=== PATIENT | female | born 1955 | race Caucasian/White ===

== ENCOUNTER → 2021-04-09 | Outpatient (CLI) | payer BC ==
--- NOTE | 2021-04-09 08:03 | US ---
EXAMINATION TYPE: US abdomen limited DATE OF EXAM: 04/09/2021 COMPARISON: NONE CLINICAL HISTORY: R19.00 ABDOMINAL MASS. Patient states she has lost weight and now she sees a lump in her RLQ. Scanning was performed directly over palp as pointed out by patient. The LLQ was scanned for comparis on purposes. There is a soft tissue density that measures 4.4 x 2.0 x 5.1 cm, that appears as a lipoma. IMPRESSION: 4.4 x 5.1 x 2.0 cm mass isoechoic in the right lower quadrant of the abdomen most likely represents a lipoma but clinical correlation is necessary as other etiologies could appear identical.
== END | disposition home or self-care (01) ==
LOC: RADUSWWP 07:25
PROVIDERS: ATTEND Family Medicine
DX: R19.03 Right lower quadrant abdominal swelling, mass and lump (principal)
CPT/HCPCS: 76705

== ENCOUNTER 2022-06-14 12:09 | Emergency (ER) | payer BC, MEDICARE ==
--- NOTE | 2022-06-14 12:45 | ED ---
Abdominal Pain HPI - General Chief Complaint: Abdominal Pain Stated Complaint: nausea Time Seen by Provider: 06/14/22 12:22 Source: patient, RN notes reviewed Mode of arrival: ambulatory Limitations: no limitations - History of Present Illness Initial Comments: 66-year-old female with a benign past medical history who is a nonsmoker no history of gallbladder disease or peptic ulcer disease who states her past couple weeks she's had intermittent episodes of nausea and some shakes some crampy abdominal discomfort in the mid abdomen. She states is usually does happen after eating. No shortness breath no chest pain palpitations she also does state that she started having some diarrhea this morning. Currently she is asymptomatic however no abdominal pain no heartburn feeling no cramps she had no dysuria no hematuria no prior history of kidney stones. She does states she's had weight loss recently she's been using her eliptical machine up to 30 minutes a day he has quit eating sugar. No other complaints or modifying factors MD Complaint: abdominal pain, other - Related Data Home Medications Medication Instructions Recorded Confirmed Felodipine [Felodipine ER] 10 mg PO DAILY 03/03/14 06/14/22 Potassium Chloride [Klor-Con 20] 20 meq PO SUTUTHSA 03/03/14 06/14/22 Pravastatin Sodium [Pravachol] 80 mg PO HS 03/03/14 06/14/22 hydroCHLOROthiazide [Hydrodiuril] 50 mg PO DAILY 03/03/14 06/14/22 Potassium Chloride [Klor-Con M20] 40 meq PO MOWEFR 06/14/22 06/14/22 Allergies Allergy/AdvReac Type Severity Reaction Status Date / Time No Known Allergies Allergy Verified 06/14/22 19:23 Review of Systems ROS Statement: Those systems with pertinent positive or pertinent negative responses have been documented in the HPI. ROS Other: All systems not noted in ROS Statement are negative. Past Medical History Past Medical History: Hyperlipidemia, Hypertension History of Any Multi-Drug Resistant Organisms: None Reported Past Surgical History: Tonsillectomy Past Anesthesia/Blood Transfusion Reactions: No Reported Reaction Past Alcohol Use History: None Reported Past Drug Use History: None Reported General Exam - General Exam Comments Initial Comments: This is a well-developed well-nourished awake alert oriented 4 female Limitations: no limitations General appearance: alert, in no apparent distress Head exam: Present: atraumatic, normocephalic, normal inspection Eye exam: Present: normal appearance, PERRL, EOMI. Absent: scleral icterus, conjunctival injection, periorbital swelling ENT exam: Present: normal exam, mucous membranes moist Neck exam: Present: normal inspection, full ROM. Absent: tenderness, meningismus, lymphadenopathy Respiratory exam: Present: normal lung sounds bilaterally. Absent: respiratory distress, wheezes, rales, rhonchi, stridor Cardiovascular Exam: Present: normal rhythm, tachycardia, normal heart sounds. Absent: systolic murmur, diastolic murmur, rubs, gallop, clicks GI/Abdominal exam: Present: soft, distended, normal bowel sounds, other (Evidence of ascites on exam). Absent: tenderness, guarding, rebound, rigid, bruit, pulsatile mass Extremities exam: Present: normal inspection, full ROM, normal capillary refill. Absent: tenderness, pedal edema, joint swelling, calf tenderness Back exam: Present: normal inspection Neurological exam: Present: alert, oriented X3, CN II-XII intact Psychiatric exam: Present: normal affect, normal mood Skin exam: Present: warm, dry, intact, normal color. Absent: rash Course Vital Signs 06/14/22 06/14/22 06/14/22 12:19 12:52 15:33 Temperature 98.1 F Pulse Rate 116 H 100 88 Respiratory 16 20 16 Rate Blood Pressure 133/81 142/83 153/90 O2 Sat by Pulse 97 98 99 Oximetry - Reevaluation(s) Reevaluation #1: 06/14/22 19:[address] Boggs as well as with Dr. Gant did recommend transferred to a tertiary care center due to the need for [facility] oncology. Discussed this with the patient family [facility] was contacted and accepted the patient in transfer I did discuss the case with Dr. San in the emergency department. Patient will be an ER to ER answer. Medical Decision Making - Medical Decision Making Patient did require admission for the above. Tertiary care center was deemed to be the most appropriate. Patient will be transferred to [facility]. He did take a period of time to get the workup completed as well as a transfer accomplished. - Lab Data Result diagrams: 06/14/22 12:43 06/14/22 12:43 Lab Results 06/14/22 06/14/22 06/14/22 Range/Units 12:43 12:43 12:43 WBC 13.3 H (3.8-10.6) k/uL RBC 4.29 (3.80-5.40) m/uL Hgb 11.3 L (11.4-16.0) gm/dL Hct 35.1 (34.0-46.0) % MCV 82.0 (80.0-100.0) fL MCH 26.4 (25.0-35.0) pg MCHC 32.2 (31.0-37.0) g/dL RDW 13.6 (11.5-15.5) % Plt Count 517 H (150-450) k/uL MPV 7.4 Neutrophils % 85 % Lymphocytes % 6 % Monocytes % 5 % Eosinophils % 3 % Basophils % 0 % Neutrophils # 11.2 H (1.3-7.7) k/uL Lymphocytes # 0.9 L (1.0-4.8) k/uL Monocytes # 0.6 (0-1.0) k/uL Eosinophils # 0.4 (0-0.7) k/uL Basophils # 0.0 (0-0.2) k/uL D-Dimer (<0.60) mg/L FEU Sodium 137 (137-145) mmol/L Potassium 3.5 (3.5-5.1) mmol/L Chloride 100 (98-107) mmol/L Carbon Dioxide 26 (22-30) mmol/L Anion Gap 11 mmol/L BUN 21 H (7-17) mg/dL Creatinine 1.09 H (0.52-1.04) mg/dL Est GFR (CKD-EPI)AfAm 62 (>60 ml/min/1.73 sqM) Est GFR (CKD-EPI)NonAf 54 (>60 ml/min/1.73 sqM) Glucose 108 H (74-99) mg/dL Plasma Lactic Acid Abebe (0.7-2.0) mmol/L Calcium 9.7 (8.4-10.2) mg/dL Magnesium 1.6 (1.6-2.3) mg/dL Total Bilirubin 0.5 (0.2-1.3) mg/dL AST 28 (14-36) U/L ALT 13 (4-34) U/L Alkaline Phosphatase 81 (38-126) U/L Creatine Kinase 80 (30-135) U/L Troponin I (0.000-0.034) ng/mL Total Protein 6.5 (6.3-8.2) g/dL Albumin 3.7 (3.5-5.0) g/dL Amylase 54 (30-110) U/L Lipase 252 (23-300) U/L Urine Color Yellow Urine Appearance Clear (Clear) Urine pH 8.0 (5.0-8.0) Ur Specific [place] 1.019 (1.001-1.035) Urine Protein 1+ H (Negative) Urine Glucose (UA) Negative (Negative) Urine Ketones Negative (Negative) Urine Blood Negative (Negative) Urine Nitrite Negative (Negative) Urine Bilirubin Negative (Negative) Urine Urobilinogen <2.0 (<2.0) mg/dL Ur Leukocyte Esterase Large H (Negative) Urine RBC 2 (0-5) /hpf Urine WBC 21 H (0-5) /hpf Ur Squamous Epith Cells 6 H (0-4) /hpf Urine Bacteria Rare H (None) /hpf Hyaline Casts 3 H (0-2) /lpf Urine Mucus Occasional H (None) /hpf Coronavirus (PCR) (Not Detectd) 06/14/22 06/14/22 06/14/22 Range/Units 12:43 12:43 12:43 WBC (3.8-10.6) k/uL RBC (3.80-5.40) m/uL Hgb (11.4-16.0) gm/dL Hct (34.0-46.0) % MCV (80.0-100.0) fL MCH (25.0-35.0) pg MCHC (31.0-37.0) g/dL RDW (11.5-15.5) % Plt Count (150-450) k/uL MPV Neutrophils % % Lymphocytes % % Monocytes % % Eosinophils % % Basophils % % Neutrophils # (1.3-7.7) k/uL Lymphocytes # (1.0-4.8) k/uL Monocytes # (0-1.0) k/uL Eosinophils # (0-0.7) k/uL Basophils # (0-0.2) k/uL D-Dimer (<0.60) mg/L FEU Sodium (137-145) mmol/L Potassium (3.5-5.1) mmol/L Chloride (98-107) mmol/L Carbon Dioxide (22-30) mmol/L Anion Gap mmol/L BUN (7-17) mg/dL Creatinine (0.52-1.04) mg/dL Est GFR (CKD-EPI)AfAm (>60 ml/min/1.73 sqM) Est GFR (CKD-EPI)NonAf (>60 ml/min/1.73 sqM) Glucose (74-99) mg/dL Plasma Lactic Acid Abebe 1.0 (0.7-2.0) mmol/L Calcium (8.4-10.2) mg/dL Magnesium (1.6-2.3) mg/dL Total Bilirubin (0.2-1.3) mg/dL AST (14-36) U/L ALT (4-34) U/L Alkaline Phosphatase (38-126) U/L Creatine Kinase (30-135) U/L Troponin I <0.012 (0.000-0.034) ng/mL Total Protein (6.3-8.2) g/dL Albumin (3.5-5.0) g/dL Amylase (30-110) U/L Lipase (23-300) U/L Urine Color Urine Appearance (Clear) Urine pH (5.0-8.0) Ur Specific [place] (1.001-1.035) Urine Protein (Negative) Urine Glucose (UA) (Negative) Urine Ketones (Negative) Urine Blood (Negative) Urine Nitrite (Negative) Urine Bilirubin (Negative) Urine Urobilinogen (<2.0) mg/dL Ur Leukocyte Esterase (Negative) Urine RBC (0-5) /hpf Urine WBC (0-5) /hpf Ur Squamous Epith Cells (0-4) /hpf Urine Bacteria (None) /hpf Hyaline Casts (0-2) /lpf Urine Mucus (None) /hpf Coronavirus (PCR) Not Detected (Not Detectd) 06/14/22 Range/Units 12:43 WBC (3.8-10.6) k/uL RBC (3.80-5.40) m/uL Hgb (11.4-16.0) gm/dL Hct (34.0-46.0) % MCV (80.0-100.0) fL MCH (25.0-35.0) pg MCHC (31.0-37.0) g/dL RDW (11.5-15.5) % Plt Count (150-450) k/uL MPV Neutrophils % % Lymphocytes % % Monocytes % % Eosinophils % % Basophils % % Neutrophils # (1.3-7.7) k/uL Lymphocytes # (1.0-4.8) k/uL Monocytes # (0-1.0) k/uL Eosinophils # (0-0.7) k/uL Basophils # (0-0.2) k/uL D-Dimer 3.95 H (<0.60) mg/L FEU Sodium (137-145) mmol/L Potassium (3.5-5.1) mmol/L Chloride (98-107) mmol/L Carbon Dioxide (22-30) mmol/L Anion Gap mmol/L BUN (7-17) mg/dL Creatinine (0.52-1.04) mg/dL Est GFR (CKD-EPI)AfAm (>60 ml/min/1.73 sqM) Est GFR (CKD-EPI)NonAf (>60 ml/min/1.73 sqM) Glucose (74-99) mg/dL Plasma Lactic Acid Abebe (0.7-2.0) mmol/L Calcium (8.4-10.2) mg/dL Magnesium (1.6-2.3) mg/dL Total Bilirubin (0.2-1.3) mg/dL AST (14-36) U/L ALT (4-34) U/L Alkaline Phosphatase (38-126) U/L Creatine Kinase (30-135) U/L Troponin I (0.000-0.034) ng/mL Total Protein (6.3-8.2) g/dL Albumin (3.5-5.0) g/dL Amylase (30-110) U/L Lipase (23-300) U/L Urine Color Urine Appearance (Clear) Urine pH (5.0-8.0) Ur Specific [place] (1.001-1.035) Urine Protein (Negative) Urine Glucose (UA) (Negative) Urine Ketones (Negative) Urine Blood (Negative) Urine Nitrite (Negative) Urine Bilirubin (Negative) Urine Urobilinogen (<2.0) mg/dL Ur Leukocyte Esterase (Negative) Urine RBC (0-5) /hpf Urine WBC (0-5) /hpf Ur Squamous Epith Cells (0-4) /hpf Urine Bacteria (None) /hpf Hyaline Casts (0-2) /lpf Urine Mucus (None) /hpf Coronavirus (PCR) (Not Detectd) - EKG Data -: EKG Interpreted by Ar EKG shows normal: sinus rhythm (Sinus tachycardia rate 101 SC interval 125 QRS duration 87 QT/QTC 346/404 possible left atrial enlargement nonspecific ST con figuration) - Radiology Data Radiology results: report reviewed (Imaging was reviewed as well as report evidence of ascites evidence of right pleural effusion 14 cm complex mass seen in the pelvis please see complete report), image reviewed Disposition Clinical Impression: Pelvic mass, Ascites, Pleural effusion, right, Renal insufficiency syndrome, Hydronephrosis, Weight loss Disposition: OTHER INSTITUTION NOT DEFINED Condition: Stable Referrals: Janee Ott MD [Primary Care Provider] - 1-2 days Decision Date: 06/14/22 Decision Time: 19:15 - Out of Hospital Transfer - Req. Specs Out of Hospital Transfer - Requested Specifics: Other Emergency Center
[2022-06-14 13:04] LABS: Basophils % (A) 0 %; Eosinophils # (A) 0.4 k/uL (0-0.7); Eosinophils % (A) 3 %; HCT 35.1 % (34.0-46.0); HGB 11.3 gm/dL (11.4-16.0); Lymphocytes # (A) 0.9 k/uL (1.0-4.8); Lymphocytes % (A) 6 %; MCH 26.4 pg (25.0-35.0); MCHC 32.2 g/dL (31.0-37.0); Mean Platelet Volume 7.4; Monocytes # (A) 0.6 k/uL (0-1.0); Monocytes % (A) 5 %; Neutrophils # (A) 11.2 k/uL (1.3-7.7); Neutrophils % (A) 85 %; Platelet Count 517 k/uL (150-450); RBC 4.29 m/uL (3.80-5.40); RDW 13.6 % (11.5-15.5); WBC 13.3 k/uL (3.8-10.6)
[2022-06-14 13:10] LABS: Appearance,Urine Clear (Clear); Bacteria,Urine Rare /hpf; Bilirubin,Urine Negative (Negative); Blood,Urine Negative (Negative); Color,Urine Yellow; Glucose,Urine (UA) Negative (Negative); Hyaline Casts,Urine 3 /lpf (0-2); Ketones,Urine Negative (Negative); Leukocyte Esterase,Urine Large (Negative); Mucus,Urine Occasional /hpf; Nitrite,Urine Negative (Negative); Protein,Urine 1+ (Negative); RBC,Urine 2 /hpf (0-5); Specific Gravity,Urine 1.019 (1.001-1.035); Squamous Epithelial Cell,Urine 6 /hpf (0-4); Urobilinogen,Urine <2.0 mg/dL (<2.0); WBC,Urine 21 /hpf (0-5)
[2022-06-14 13:27] LABS: Albumin 3.7 g/dL (3.5-5.0); Calcium 9.7 mg/dL (8.4-10.2); Magnesium 1.6 mg/dL (1.6-2.3); Potassium 3.5 mmol/L (3.5-5.1); Total Bilirubin 0.5 mg/dL (0.2-1.3); Total Protein 6.5 g/dL (6.3-8.2)
--- NOTE | 2022-06-14 13:40 | XR ---
EXAMINATION TYPE: XR KUB DATE OF EXAM: 06/14/2022 COMPARISON: NONE HISTORY: Pain TECHNIQUE: Single supine KUB image of the abdomen is obtained FINDINGS: Small bowel demonstrates no evidence for dilatation or air fluid levels. Gas and fecal material is seen in non-distended colon. No convincing evidence for pneumoperitoneum. No unusual calcifications. The lung bases are clear. The osseous structures are intact. IMPRESSION: 1. Overall nonobstructive bowel gas pattern.
[2022-06-14] MEDS ORDERED: SODIUM CHLORIDE 0.9% 1,000 ML IV STA (14:28)
--- NOTE | 2022-06-14 14:58 | CT ---
EXAMINATION TYPE: CT angio chest DATE OF EXAM: 06/14/2022 COMPARISON: HISTORY: Elevated d-dimer, heartburn sensation, pressure CT DLP: 276.9 mGycm Automated exposure control for dose reduction was used. CONTRAST: Performed with IV Contrast, patient injected with 80 mL of Isovue 370. There are 3-D post processed images. There is right pleural effusion. There is large amount of abdominal ascites fluid. There is patchy in terstitial infiltrate in both lungs. No mediastinal adenopathy. There are no hilar masses. There is n ormal contrast opacification of the pulmonary arteries. No filling defect. Heart size is fairly rafaela l. No pericardial effusion. The thoracic spine is intact. No compression fracture. Sternum is intact. The left kidney appears to show hydronephrosis IMPRESSION: No evidence of pulmonary embolism. Interstitial pulmonary infiltrates. Right pleural effusion and large amount of abdominal ascites fluid. Possible left-sided hydronephrosi s
[2022-06-14 15:34] VITALS: RESP 16
--- NOTE | 2022-06-14 16:42 | CT ---
EXAMINATION TYPE: CT abdomen pelvis wo con DATE OF EXAM: 06/14/2022 COMPARISON: None HISTORY: Flank pain kidney stone suspected CT DLP: 778.9 mGycm Automated exposure control for dose reduction was used. Images obtained from the diaphragm to the floor the pelvis with no IV contrast. There is right pleural effusion. Heart size is fairly normal. No pericardial effusion. Liver and sple en are intact. There is moderate abdominal ascites. There is no evidence of pancreatic mass. There ar e small calcified gallstone. There is contrast in the kidneys from recent CT scan. There is left-side d hydronephrosis and hydroureter. Bladder distends smoothly without contrast. The distal left ureter is not well identified. There is a large complex solid and cystic pelvic mass with septations. Mass measures 14 cm. Uterus is difficult to identify. There is no free air. No bowel obstruction. The lumbar vertebrae have normal alignment. No compression fracture. Disc spaces are fairly normal. T he bony pelvis is intact. The hip joints are intact. IMPRESSION: Large complex pelvic mass could be a tumor of uterus or ovary. Abdominal ascites. Left-sided hydronep hrosis and hydroureter with a delayed left sided pyelogram. Distal left ureter likely obstructed due to the large pelvic mass. No calculus seen. Mild right pleural effusion.
[2022-06-14 20:02] VITALS: TEMP 98.6
[2022-06-14 22:38] VITALS: BP 145/85; PULSE 68
== END 2022-06-14 22:36 | disposition other institution (70) ==
LOC: EC 12:09
DX: J90 Pleural effusion, not elsewhere classified (principal); R18.8 Other ascites; R63.4 Abnormal weight loss; N28.9 Disorder of kidney and ureter, unspecified; I10 Essential (primary) hypertension; E78.5 Hyperlipidemia, unspecified; Z20.822 Contact with and (suspected) exposure to COVID-19; Z79.899 Other long term (current) drug therapy
CPT/HCPCS: 36415; 93005; 85379; 80053; 82150; 82550; 83605; 83690; 83735; 84484; 85025; 81001; 87086; 87635; 74018; 71275; 74176; 96360; 99285; Q9967

== ENCOUNTER 2022-08-05 16:43 | Inpatient (IN) | payer MEDICARE ==
--- NOTE | 2022-08-05 17:29 | ED ---
General Adult HPI - General Chief complaint: Shortness of Breath Stated complaint: Fluid Over Lung Time Seen by Provider: 08/05/22 16:50 Source: patient, EMS, RN notes reviewed, old records reviewed Mode of arrival: EMS Limitations: no limitations - History of Present Illness Initial comments: This 66-year-old female who presents to the emergency department with past medical history significant for ovarian cancer. Patient states in the past she's had to have a paracentesis and thoracentesis to get fluid off of her. Patient comes in today because last night she started having difficulty breathing and worsening today. Patient believes is because she has to much fluid in her lungs and wished fluid in her belly. Patient denies any fever chills or cough per patient denies any chest pain or palpitations. Patient denies lightheadedness or dizziness. Patient states there is some abdominal pain but not bad. Patient denies nausea vomiting diarrhea. Patient denies any recent injury or trauma. Patient states the swelling in her legs is chronic but believes they are bigger than normal - Related Data Home Medications Medication Instructions Recorded Confirmed Felodipine [Felodipine ER] 10 mg PO DAILY 03/03/14 08/05/22 Potassium Chloride [Klor-Con 20] 20 meq PO SUTHFRSA 03/03/14 08/05/22 Pravastatin Sodium [Pravachol] 80 mg PO HS 03/03/14 08/05/22 Potassium Chloride [Klor-Con M20] 40 meq PO MOTUWE 06/14/22 08/05/22 Acetaminophen [Tylenol] 650 mg PO Q8H PRN 08/05/22 08/05/22 Cholestyramine (with Sugar) 4 gm PO Q4H 08/05/22 08/05/22 [Cholestyramine Packet] Diphenoxylate HCl/Atropine 1 tab PO QID PRN 08/05/22 08/05/22 [Lomotil 2.5-0.025 mg Tablet] Docusate Sodium [Dok] 100 mg PO BID@0800,1700 08/05/22 08/05/22 Famotidine [Pepcid] 40 mg PO DAILY 08/05/22 08/05/22 Furosemide [Lasix] 20 mg PO DAILY 08/05/22 08/05/22 HYDROcodone/APAP 5-325MG [[place] 1 tab PO Q6H PRN 08/05/22 08/05/22 5-325] Ipratropium-Albuterol Nebulize 3 ml INHALATION RT-Q6H PRN 08/05/22 08/05/22 [Duoneb 0.5 mg-3 mg/3 ml Soln] Loperamide HCl [Imodium A-D] 2 mg PO Q6H 08/05/22 08/05/22 Mag Hydrox/Al Hydrox/Simeth 30 ml PO Q6H PRN 08/05/22 08/05/22 [Maalox] Magnesium Hydroxide [Milk of 7,200 mg PO Q48H PRN 08/05/22 08/05/22 Magnesia Concentrate] Metoclopramide HCl [Reglan] 5 mg PO BID@0800,1700 08/05/22 08/05/22 Metoprolol Succinate (ER) [Toprol 25 mg PO DAILY 08/05/22 08/05/22 Xl] Na Phos,M-B/Na Phos,Di-Ba [Fleet 133 ml RECTAL DAILY PRN 08/05/22 08/05/22 Adult] Naproxen [Naprosyn] 500 mg PO BID@0800,1700 08/05/22 08/05/22 Pantoprazole Sodium [Protonix] 40 mg PO BID@0800,1700 08/05/22 08/05/22 Prochlorperazine [Compazine] 10 mg PO TID PRN 08/05/22 08/05/22 SILVER sulfADIAZINE Cream 1 applic TOPICAL BID 08/05/22 08/05/22 [Silvadene 1% Cream] Spironolactone [Aldactone] 25 mg PO DAILY 08/05/22 08/05/22 Tolterodine Tartrate [Tolterodine 4 mg PO DAILY 08/05/22 08/05/22 Tartrate ER] bisacodyL [Dulcolax] 10 mg RECTAL DAILY PRN 08/05/22 08/05/22 ondansetron HCL [Zofran] 8 mg PO Q8HR PRN 08/05/22 08/05/22 Allergies Allergy/AdvReac Type Severity Reaction Status Date / Time No Known Allergies Allergy Verified 08/05/22 20:05 Review of Systems ROS Statement: Those systems with pertinent positive or pertinent negative responses have been documented in the HPI. ROS Other: All systems not noted in ROS Statement are negative. Past Medical History Past Medical History: Hyperlipidemia, Hypertension History of Any Multi-Drug Resistant Organisms: None Reported Past Surgical History: Tonsillectomy Past Anesthesia/Blood Transfusion Reactions: No Reported Reaction Past Psychological History: No Psychological Hx Reported Past Alcohol Use History: None Reported Past Drug Use History: None Reported General Exam - General Exam Comments Initial Comments: GENERAL: Patient is well-developed and well-nourished. Patient is nontoxic and well- hydrated and is in mild distress. ENT: Neck is soft and supple. No significant lymphadenopathy is noted. Oropharynx is clear. Moist mucous membranes. Neck has full range of motion without eliciting any pain. EYES: The sclera were anicteric and conjunctiva were pink and moist. Extraocular movements were intact and pupils were equal round and reactive to light. Eyelids were unremarkable. PULMONARY: Unlabored respirations. Good breath sounds bilaterally. No audible rales rhonchi or wheezing was noted. CARDIOVASCULAR: There is a regular rate and rhythm without any murmurs gallops or rubs. ABDOMEN: Soft and nontender with normal bowel sounds. SKIN: Skin is clear with no lesions or rashes and otherwise unremarkable. NEUROLOGIC: Patient is alert and oriented x3. Cranial nerves II through XII are grossly int act. Motor and sensory are also intact. Normal speech, volume and content. Symmetrical smile. MUSCULOSKELETAL: Normal extremities with adequate strength and full range of motion. 2+ edema bilaterally LYMPHATICS: No significant lymphadenopathy is noted PSYCHIATRIC: Normal psychiatric evaluation. Limitations: no limitations Course Vital Signs 08/05/22 08/05/22 08/05/22 16:55 17:00 17:30 Temperature 97.6 F Pulse Rate 98 96 97 Respiratory 22 24 24 Rate Blood Pressure 103/68 88/63 93/63 O2 Sat by Pulse 95 95 95 Oximetry 08/05/22 08/05/22 08/05/22 18:30 19:22 20:31 Temperature 98.2 F Pulse Rate 98 97 101 H Respiratory 24 24 22 Rate Blood Pressure 87/60 85/58 97/51 O2 Sat by Pulse 96 95 96 Oximetry Medical Decision Making - Medical Decision Making I interpreted EKG. EKG shows sinus rhythm at 98 bpm MT interval 124 QRS is 80 QT intervals 370 QTC is 373. Patient's EKG shows no significant ST segment elevation or depression V6 is difficult to recent secondary to a lot of noise. I interpreted the chest x-ray. Chest x-ray shows pleural effusion on the right. I did a chest x-ray of the chest. I see no pulmonary embolism. Patient had hyperkalemia so the patient was given one amp of bicarb 1 amp of D50 1 amp of calcium chloride 10 units of insulin and 30 of Kayexalate - Lab Data Result diagrams: 08/05/22 17:25 08/05/22 18:42 Lab Results 08/05/22 08/05/22 08/05/22 Range/Units 17:25 17:25 17:25 WBC 14.8 H (3.8-10.6) k/uL RBC 3.63 L (3.80-5.40) m/uL Hgb 9.3 L D (11.4-16.0) gm/dL Hct 29.3 L (34.0-46.0) % MCV 80.7 (80.0-100.0) fL MCH 25.5 (25.0-35.0) pg MCHC 31.6 (31.0-37.0) g/dL RDW 20.4 H (11.5-15.5) % Plt Count 557 H (150-450) k/uL MPV 8.9 Neutrophils % (Manual) 60 % Band Neuts % (Manual) 30 % Lymphocytes % (Manual) 7 % Monocytes % (Manual) 3 % Neutrophils # (Manual) 13.30 H (1.3-7.7) k/uL Lymphocytes # (Manual) 1.04 (1.0-4.8) k/uL Monocytes # (Manual) 0.44 (0-1.0) k/uL Nucleated RBCs 0 (0-0) /100 WBC Manual Slide Review Performed Toxic Vacuolation Present Hypochromasia Slight Anisocytosis Moderate Microcytosis Slight PT 15.0 H (9.0-12.0) sec INR 1.5 H (<1.2) APTT 29.4 (22.0-30.0) sec D-Dimer (<0.60) mg/L FEU Sodium 133 L (137-145) mmol/L Potassium 6.1 H* (3.5-5.1) mmol/L Chloride 108 H (98-107) mmol/L Carbon Dioxide 18 L (22-30) mmol/L Anion Gap 7 mmol/L BUN 36 H (7-17) mg/dL Creatinine 1.07 H (0.52-1.04) mg/dL Est GFR (CKD-EPI)AfAm 63 (>60 ml/min/1.73 sqM) Est GFR (CKD-EPI)NonAf 55 (>60 ml/min/1.73 sqM) Glucose 83 (74-99) mg/dL Plasma Lactic Acid [place] (0.7-2.0) mmol/L Calcium 7.6 L (8.4-10.2) mg/dL Magnesium 1.8 (1.6-2.3) mg/dL Total Bilirubin 0.5 (0.2-1.3) mg/dL AST 26 (14-36) U/L ALT 19 (4-34) U/L Alkaline Phosphatase 109 (38-126) U/L Troponin I (0.000-0.034) ng/mL NT-Pro-B Natriuret Pep pg/mL Total Protein 5.1 L (6.3-8.2) g/dL Albumin 2.1 L (3.5-5.0) g/dL Blood Type Blood Type Confirm Blood Type Recheck Bld Type Recheck Status Antibody Screen Spec Expiration Date 08/05/22 08/05/22 08/05/22 Range/Units 17:25 17:25 17:25 WBC (3.8-10.6) k/uL RBC (3.80-5.40) m/uL Hgb (11.4-16.0) gm/dL Hct (34.0-46.0) % MCV (80.0-100.0) fL MCH (25.0-35.0) pg MCHC (31.0-37.0) g/dL RDW (11.5-15.5) % Plt Count (150-450) k/uL MPV Neutrophils % (Manual) % Band Neuts % (Manual) % Lymphocytes % (Manual) % Monocytes % (Manual) % Neutrophils # (Manual) (1.3-7.7) k/uL Lymphocytes # (Manual) (1.0-4.8) k/uL Monocytes # (Manual) (0-1.0) k/uL Nucleated RBCs (0-0) /100 WBC Manual Slide Review Toxic Vacuolation Hypochromasia Anisocytosis Microcytosis PT (9.0-12.0) sec INR (<1.2) APTT (22.0-30.0) sec D-Dimer (<0.60) mg/L FEU Sodium (137-145) mmol/L Potassium (3.5-5.1) mmol/L Chloride (98-107) mmol/L Carbon Dioxide (22-30) mmol/L Anion Gap mmol/L BUN (7-17) mg/dL Creatinine (0.52-1.04) mg/dL Est GFR (CKD-EPI)AfAm (>60 ml/min/1.73 sqM) Est GFR (CKD-EPI)NonAf (>60 ml/min/1.73 sqM) Glucose (74-99) mg/dL Plasma Lactic Acid [place] 1.9 (0.7-2.0) mmol/L Calcium (8.4-10.2) mg/dL Magnesium (1.6-2.3) mg/dL Total Bilirubin (0.2-1.3) mg/dL AST (14-36) U/L ALT (4-34) U/L Alkaline Phosphatase (38-126) U/L Troponin I <0.012 (0.000-0.034) ng/mL NT-Pro-B Natriuret Pep 1090 pg/mL Total Protein (6.3-8.2) g/dL Albumin (3.5-5.0) g/dL Blood Type Blood Type Confirm Blood Type Recheck Bld Type Recheck Status Antibody Screen Spec Expiration Date 08/05/22 08/05/22 08/05/22 Range/Units 17:25 17:53 18:02 WBC (3.8-10.6) k/uL RBC (3.80-5.40) m/uL Hgb (11.4-16.0) gm/dL Hct (34.0-46.0) % MCV (80.0-100.0) fL MCH (25.0-35.0) pg MCHC (31.0-37.0) g/dL RDW (11.5-15.5) % Plt Count (150-450) k/uL MPV Neutrophils % (Manual) % Band Neuts % (Manual) % Lymphocytes % (Manual) % Monocytes % (Manual) % Neutrophils # (Manual) (1.3-7.7) k/uL Lymphocytes # (Manual) (1.0-4.8) k/uL Monocytes # (Manual) (0-1.0) k/uL Nucleated RBCs (0-0) /100 WBC Manual Slide Review Toxic Vacuolation Hypochromasia Anisocytosis Microcytosis PT (9.0-12.0) sec INR (<1.2) APTT (22.0-30.0) sec D-Dimer 2.67 H (<0.60) mg/L FEU Sodium (137-145) mmol/L Potassium (3.5-5.1) mmol/L Chloride (98-107) mmol/L Carbon Dioxide (22-30) mmol/L Anion Gap mmol/L BUN (7-17) mg/dL Creatinine (0.52-1.04) mg/dL Est GFR (CKD-EPI)AfAm (>60 ml/min/1.73 sqM) Est GFR (CKD-EPI)NonAf (>60 ml/min/1.73 sqM) Glucose (74-99) mg/dL Plasma Lactic Acid [place] (0.7-2.0) mmol/L Calcium (8.4-10.2) mg/dL Magnesium (1.6-2.3) mg/dL Total Bilirubin (0.2-1.3) mg/dL AST (14-36) U/L ALT (4-34) U/L Alkaline Phosphatase (38-126) U/L Troponin I (0.000-0.034) ng/mL NT-Pro-B Natriuret Pep pg/mL Total Protein (6.3-8.2) g/dL Albumin (3.5-5.0) g/dL Blood Type A Positive Blood Type Confirm A Positive Blood Type Recheck No Previous Record Bld Type Recheck Status CABO Indicated Antibody Screen NEGATIVE Spec Expiration Date 08/08/2022 - 235208/05/22 Range/Units 18:42 WBC (3.8-10.6) k/uL RBC (3.80-5.40) m/uL Hgb (11.4-16.0) gm/dL Hct (34.0-46.0) % MCV (80.0-100.0) fL MCH (25.0-35.0) pg MCHC (31.0-37.0) g/dL RDW (11.5-15.5) % Plt Count (150-450) k/uL MPV Neutrophils % (Manual) % Band Neuts % (Manual) % Lymphocytes % (Manual) % Monocytes % (Manual) % Neutrophils # (Manual) (1.3-7.7) k/uL Lymphocytes # (Manual) (1.0-4.8) k/uL Monocytes # (Manual) (0-1.0) k/uL Nucleated RBCs (0-0) /100 WBC Manual Slide Review Toxic Vacuolation Hypochromasia Anisocytosis Microcytosis PT (9.0-12.0) sec INR (<1.2) APTT (22.0-30.0) sec D-Dimer (<0.60) mg/L FEU Sodium (137-145) mmol/L Potassium 6.3 H* (3.5-5.1) mmol/L Chloride (98-107) mmol/L Carbon Dioxide (22-30) mmol/L Anion Gap mmol/L BUN (7-17) mg/dL Creatinine (0.52-1.04) mg/dL Est GFR (CKD-EPI)AfAm (>60 ml/min/1.73 sqM) Est GFR (CKD-EPI)NonAf (>60 ml/min/1.73 sqM) Glucose (74-99) mg/dL Plasma Lactic Acid [place] (0.7-2.0) mmol/L Calcium (8.4-10.2) mg/dL Magnesium (1.6-2.3) mg/dL Total Bilirubin (0.2-1.3) mg/dL AST (14-36) U/L ALT (4-34) U/L Alkaline Phosphatase (38-126) U/L Troponin I (0.000-0.034) ng/mL NT-Pro-B Natriuret Pep pg/mL Total Protein (6.3-8.2) g/dL Albumin (3.5-5.0) g/dL Blood Type Blood Type Confirm Blood Type Recheck Bld Type Recheck Status Antibody Screen Spec Expiration Date Critical Care Time Critical Care Time: Yes Total Critical Care Time: 35 Disposition Clinical Impression: Hyperkalemia, Dyspnea, Pleural effusion, Ovarian cancer Disposition: ADMITTED IP TO THIS HOSP Referrals: Favian Alonzo MD [Primary Care Provider] - 1-2 days Time of Disposition: 21:25
[2022-08-05 18:18] LABS: Albumin 2.1 g/dL (3.5-5.0); Calcium 7.6 mg/dL (8.4-10.2); Magnesium 1.8 mg/dL (1.6-2.3); Total Bilirubin 0.5 mg/dL (0.2-1.3); Total Protein 5.1 g/dL (6.3-8.2)
[2022-08-05 18:19] LABS: INR 1.5 (<1.2); Partial Thromboplastin Time 29.4 sec (22.0-30.0)
--- NOTE | 2022-08-05 18:20 | XR ---
EXAMINATION TYPE: XR chest 2V DATE OF EXAM: 08/05/2022 5:50 PM COMPARISON: Chest radiographs from 08/05/2022 CT chest and 2421 TECHNIQUE: XR chest 2V Frontal and lateral views of the chest. CLINICAL INDICATION:Female, 66 years old with history of difficulty breathing; FINDINGS: Lungs/Pleura: Blunting of the right costophrenic angle with associated atelectasis. No evidence of pn eumothorax. No left-sided pleural effusion. Pulmonary vascularity: Unremarkable. Heart/mediastinum: Cardiomediastinal silhouette is unremarkable. Musculoskeletal: Degenerative changes of the shoulder joints. IMPRESSION: Right pleural effusion with associated atelectasis.
[2022-08-05 18:24] LABS: Potassium 6.1 mmol/L (3.5-5.1)
[2022-08-05 18:52] LABS: Anisocytosis Moderate; HCT 29.3 % (34.0-46.0); Hypochromasia Slight; MCH 25.5 pg (25.0-35.0); MCHC 31.6 g/dL (31.0-37.0); MCV 80.7 fL (80.0-100.0); Mean Platelet Volume 8.9; Microcytosis Slight; Platelet Count 557 k/uL (150-450); RBC 3.63 m/uL (3.80-5.40); RDW 20.4 % (11.5-15.5); WBC 14.8 k/uL (3.8-10.6)
[2022-08-05 18:55] LABS: HGB 9.3 gm/dL (11.4-16.0)
[2022-08-05 19:04] LABS: Band Neutrophils % 30 %; Lymphocytes # (M) 1.04 k/uL (1.0-4.8); Monocytes # (M) 0.44 k/uL (0-1.0); Neutrophils % (M) 60 %; Nucleated Red Blood Cells 0 /100 WBC (0-0); Total Cells Counted 100; Toxic Vacuolation Present
[2022-08-05] MEDS ORDERED: LORazepam 2 MG/ML INJ IV STA (19:16)
[2022-08-05] MEDS ORDERED: CALCIUM CHLORIDE 100 MG/ML 10 ML SYRINGE IVP STA (19:24)
[2022-08-05] MEDS ORDERED: SODIUM BICARB 8.4% 50 ML SYR (1 MEQ/ML) IV STA (19:24)
[2022-08-05] MEDS ORDERED: INSULIN REGULAR 100 UNIT/ML VIAL (IV) IV ONE (19:24)
[2022-08-05] MEDS ORDERED: DEXTROSE 50% SYRINGE 50 ML IVP STA (19:24)
[2022-08-05] MEDS: SODIUM POLYSTYRENE SULFONATE 15 GM/60 ML BOTTLE PO STA ×2 (19:30→19:42)
[2022-08-05] MEDS ORDERED: SODIUM CHLORIDE 0.9% 1,000 ML IV ONE (21:39)
--- NOTE | 2022-08-05 21:43 | CT ---
EXAMINATION TYPE: CT chest angio for PE CT DLP: 325.9 mGycm, Automated exposure control for dose reduction was used. DATE OF EXAM: 08/05/2022 8:52 PM COMPARISON: 06/14/2022 CT chest CLINICAL INDICATION:Female, 66 years old with history of Elevated d-dimer, shortness of breath; SOB a nd elevated d-dimer TECHNIQUE/CONTRAST: CTA scan of the thorax is performed with IV Contrast, patient injected with 68 mL of Isovue 370, pulm onary embolism protocol. MIP images are created and reviewed. FINDINGS: Pulmonary Artery: There is no evidence for a filling defect within the pulmonary vasculature to sugge st acute pulmonary embolism. The pulmonary artery is of normal size. Lungs/Pleura: Right lower lobe consolidation likely representing atelectasis from moderate right pleu ral effusion. No left pleural effusion is visualized. No evidence of pneumothorax. No airspace consol idation. Airway: Large airways are patent. Heart: Heart is within normal limits for size.. Vasculature: No evidence of aortic aneurysm. Mediastinum: No gross evidence of adenopathy. Esophagus is dilated and fluid containing in the distal portion. Musculoskeletal: No acute osseous abnormalities, multilevel disc degeneration changes throughout the spine. Soft Tissues: Anasarca of the soft tissues. Lower neck: No significant findings. Upper Abdomen: Gastric lumen is distended. Diffuse low-attenuation of the liver parenchyma. Small yuri unt of ascites is seen in the abdomen and pelvis. IMPRESSION: 1. No evidence of pulmonary embolism. 2. Distended gastric lumen with suspected reflux extending into the esophagus up to near the lung ap exes. 3. Moderate right pleural effusion with associated atelectasis. 4. Anasarca of the soft tissues. 5. Hepatic steatosis 6. Trace ascites in upper abdomen which is partially visualized.
--- NOTE | 2022-08-06 07:26 | P.CNPUL ---
History of Present Illness Consult date: 08/06/22 Requesting physician: Beau Samano Reason for consult: dyspnea, pleural effusion, abnormal CXR/CT Chief complaint: Shortness of breath. History of present illness: Pulmonary consult dated 08/06/2022. 66-year-old female, very poor historian, who apparently presents to the emergency department on August 05, complaining of shortness of breath. She apparently has a history of ovarian carcinoma, and has had significant ascites, and previous paracentesis abdominis. Currently, the patient's feeling much better from the pulmonary standpoint. She states that yesterday, when she came to the ER, she was profoundly short of breath. She now has no supplemental oxygen, and also now has an NG tube in place. She's not receiving any IV fluids. She denies any difficulty breathing, coughing, wheezing, or phlegm production. She denied any nausea or vomiting or diarrhea in the emergency department yesterday. Based on her medications, she appears to have hypertension, hyperlipidemia, and chronic GI issues. Again, she is a very poor historian, and doesn't really know who has performed paracentesis in the past. White count 14.8, hemoglobin 9.3, hematocrit 29.3, and platelet count 557,000. PT 15, INR 1.5, and d-dimer is 2.67. Sodium 133, potassium 5.8, chlorides 108, CO2 18, anion gap 7, BUN 36, and creatinine 1.07. Albumin is 2.1. N-terminal proBNP is 1090. Troponin is negative. Chest x-ray shows right-sided pleural effusion with associated atelectasis. CT angiogram was negative for pulmonary embolism, but did show a moderate right-sided pleural effusion with associated atelectasis. Review of Systems REVIEW OF SYSTEMS: CONSTITUTIONAL: [Negative.] NEUROLOGIC: [ Negative.] HEENT: [ Negative.] CARDIAC: [Negative.] PULMONARY: Shortness of breath. GI: [Negative.] : [Negative.] RHEUMATOLOGIC: [ Negative.] IMMUNOLOGIC: [ Negative.] ENDOCRINE: [Negative. ] DERMATOLOGIC: [Negative.] Past Medical History Past Medical History: Hyperlipidemia, Hypertension History of Any Multi-Drug Resistant Organisms: None Reported Past Surgical History: Tonsillectomy Past Anesthesia/Blood Transfusion Reactions: No Reported Reaction Past Psychological History: No Psychological Hx Reported Smoking Status: Unknown if ever smoked Past Alcohol Use History: None Reported Past Drug Use History: None Reported Medications and Allergies Home Medications Medication Instructions Recorded Confirmed Type Felodipine [Felodipine ER] 10 mg PO DAILY 03/03/14 08/05/22 History Potassium Chloride [Klor-Con 20] 20 meq PO SUTHFRSA 03/03/14 08/05/22 History Pravastatin Sodium [Pravachol] 80 mg PO HS 03/03/14 08/05/22 History Potassium Chloride [Klor-Con M20] 40 meq PO MOTUWE 06/14/22 08/05/22 History Acetaminophen [Tylenol] 650 mg PO Q8H PRN 08/05/22 08/05/22 History Cholestyramine (with Sugar) 4 gm PO Q4H 08/05/22 08/05/22 History [Cholestyramine Packet] Diphenoxylate HCl/Atropine 1 tab PO QID PRN 08/05/22 08/05/22 History [Lomotil 2.5-0.025 mg Tablet] Docusate Sodium [Dok] 100 mg PO BID@0800,1700 08/05/22 08/05/22 History Famotidine [Pepcid] 40 mg PO DAILY 08/05/22 08/05/22 History Furosemide [Lasix] 20 mg PO DAILY 08/05/22 08/05/22 History HYDROcodone/APAP 5-325MG [[place] 1 tab PO Q6H PRN 08/05/22 08/05/22 History 5-325] Ipratropium-Albuterol Nebulize 3 ml INHALATION RT-Q6H PRN 08/05/22 08/05/22 History [Duoneb 0.5 mg-3 mg/3 ml Soln] Loperamide HCl [Imodium A-D] 2 mg PO Q6H 08/05/22 08/05/22 History Mag Hydrox/Al Hydrox/Simeth 30 ml PO Q6H PRN 08/05/22 08/05/22 History [Maalox] Magnesium Hydroxide [Milk of 7,200 mg PO Q48H PRN 08/05/22 08/05/22 History Magnesia Concentrate] Metoclopramide HCl [Reglan] 5 mg PO BID@0800,1700 08/05/22 08/05/22 History Metoprolol Succinate (ER) [Toprol 25 mg PO DAILY 08/05/22 08/05/22 History Xl] Na Phos,M-B/Na Phos,Di-Ba [Fleet 133 ml RECTAL DAILY PRN 08/05/22 08/05/22 H istory Adult] Naproxen [Naprosyn] 500 mg PO BID@0800,1700 08/05/22 08/05/22 History Pantoprazole Sodium [Protonix] 40 mg PO BID@0800,1700 08/05/22 08/05/22 History Prochlorperazine [Compazine] 10 mg PO TID PRN 08/05/22 08/05/22 History SILVER sulfADIAZINE Cream 1 applic TOPICAL BID 08/05/22 08/05/22 History [Silvadene 1% Cream] Spironolactone [Aldactone] 25 mg PO DAILY 08/05/22 08/05/22 History Tolterodine Tartrate [Tolterodine 4 mg PO DAILY 08/05/22 08/05/22 History Tartrate ER] bisacodyL [Dulcolax] 10 mg RECTAL DAILY PRN 08/05/22 08/05/22 History ondansetron HCL [Zofran] 8 mg PO Q8HR PRN 08/05/22 08/05/22 History Allergies Allergy/AdvReac Type Severity Reaction Status Date / Time No Known Allergies Allergy Verified 08/05/22 20:05 Physical Exam Osteopathic Statement: *. No significant issues noted on an osteopathic structural exam other than those noted in the History and Physical/Consult. Vitals: Vital Signs Temp Pulse Pulse Resp BP BP Pulse Ox 08/06/22 06:38 97.7 F 96 20 82/53 08/06/22 06:18 81/48 08/06/22 04:00 80/50 08/06/22 02:47 97.4 F L 83 16 83/53 96 08/05/22 23:42 82 16 92/57 96 08/05/22 22:43 85 18 94/53 95 08/05/22 20:31 101 H 22 97/51 96 08/05/22 19:22 98.2 F 97 24 85/58 95 08/05/22 18:30 98 24 87/60 96 08/05/22 17:30 97 24 93/63 95 08/05/22 17:00 96 24 88/63 95 08/05/22 16:55 97.6 F 98 22 103/68 95 Intake and Output 08/05/22 08/06/22 08/06/22 22:59 06:59 14:59 Intake Total 0 Output Total 1800 Balance -1800 0 Intake: Oral 0 Output: Gastric Drainage 1800 Other: Voiding Method External Catheter Weight 93.894 kg 93.894 kg No acute distress, oriented 3. Currently on room air. NG tube is noted. No obvious respiratory difficulty. HEENT examination is grossly unremarkable. Neck supple. Full range of motion. No adenopathy thyromegaly or neck vein distention. Cardiovascular examination reveals regular rhythm rate. S1-S2 normal. No S3 or S4. No discernible murmur noted. Heart rate 96 bpm. Lungs reveal diminished basilar right-sided breast sounds. Dullness on percussion. Left lung is relatively clear. No wheezes or crackles. Room air saturation 96%. Abdomen is distended, with a fluid wave. No tenderness on palpation. Extremities are intact. No cyanosis or clubbing. Significant lower extremity edema is noted. Skin is without rash or lesion. Neurologic examination is brief but nonfocal. Results - Laboratory Findings CBC and BMP: 08/05/22 17:25 08/06/22 05:24 PT/INR, D-dimer PT 15.0 sec (9.0-12.0) H 08/05/22 17:25 INR 1.5 (<1.2) H 08/05/22 17:25 D-Dimer 2.67 mg/L FEU (<0.60) H 08/05/22 17:25 Abnormal lab findings: Abnormal Labs 08/05/22 08/05/22 08/05/22 17:25 17:25 17:25 WBC 14.8 H RBC 3.63 L Hgb 9.3 L D Hct 29.3 L RDW 20.4 H Plt Count 557 H Neutrophils # (Manual) 13.30 H PT 15.0 H INR 1.5 H D-Dimer Sodium 133 L Potassium 6.1 H* Chloride 108 H Carbon Dioxide 18 L BUN 36 H Creatinine 1.07 H Calcium 7.6 L Total Protein 5.1 L Albumin 2.1 L 08/05/22 08/05/22 08/06/22 17:25 18:42 05:24 WBC RBC Hgb Hct RDW Plt Count Neutrophils # (Manual) PT INR D-Dimer 2.67 H Sodium Potassium 6.3 H* 5.8 H Chloride Carbon Dioxide BUN Creatinine Calcium Total Protein Albumin - Diagnostic Findings Chest x-ray: image reviewed CT scan - chest: image reviewed Assessment and Plan Assessment: Shortness of breath, likely secondary to right-sided pleural effusion, and abdominal ascites, secondary to her ovarian carcinoma. No evidence of pulmonary embolism on CT angiogram. History of hypertension. History of hyperlipidemia. History of GERD. Plan: Plan dated 08/06/2022. The patient may already have a relationship with interventional radiology, for the performing of paracentesis abdominis, or thoracentesis. If so, interventional radiology should be consulted. We will order an ultrasound of the right chest, to see if there is fluid present for possible thoracentesis. Additional recommendations and suggestions are forthcoming. Currently, she appears not to be having any difficulty breathing. She is on room air. She does have an NG tube in place. She initially came in with shortness of breath, and I'm not sure why the NG tube was placed and is not well documented in the medical record. We will follow as needed. Time with Patient: Greater than 30
[2022-08-06] MEDS ORDERED: IOPAMIDOL CONTRAST (ORAL USE) VIAL PO PRN ×2 (08:24→10:54)
[2022-08-06] MEDS ORDERED: SODIUM CHLORIDE 0.9% 1,000 ML IV SCH (09:00)
[2022-08-06] MEDS ORDERED: IPRATROPIUM-ALBUTEROL 3 ML NEB INHALATION PRN (09:40)
[2022-08-06] MEDS ORDERED: ACETAMINOPHEN TAB 325 MG TAB PO PRN (09:40)
[2022-08-06] MEDS ORDERED: PANTOPRAZOLE 40 MG/10 ML VIAL IVP SCH (09:45)
[2022-08-06 10:44] LABS: ALT 16 U/L (4-34); AST 22 U/L (14-36); African American GFR (CKD) 53 (>60 ml/min/1.73 sqM); Albumin 1.8 g/dL (3.5-5.0); Albumin/Globulin Ratio 0.7; Alkaline Phosphatase 90 U/L (38-126); Anion Gap 7 mmol/L; Blood Urea Nitrogen 43 mg/dL (7-17); Calcium 7.9 mg/dL (8.4-10.2); Carbon Dioxide 16 mmol/L (22-30); Chloride 115 mmol/L (98-107); Globulin 2.6 g/dL; Glucose 71 mg/dL (74-99); Non-African American GFR(CKD) 46 (>60 ml/min/1.73 sqM); Sodium 138 mmol/L (137-145); Total Bilirubin 0.2 mg/dL (0.2-1.3); Total Protein 4.4 g/dL (6.3-8.2)
--- NOTE | 2022-08-06 10:49 | P.GSCN ---
History of Present Illness Consult date: 08/06/22 History of present illness: CHIEF COMPLAINT: Shortness of breath HISTORY OF PRESENT ILLNESS: This is a 66-year-old female with a known history of ovarian cancer diagnosed in May 2022. She has completed one round of chemotherapy. Her last chemo treatment was 3 weeks ago. Patient presents to the hospital with worsening shortness of breath. Reports she had been getting a paracentesis every 2-3 weeks due to fluid buildup from her cancer. She also has required thoracentesis. Patient also had a prior history of bowel obstruction requiring NG tube placement. Patient denies any abdominal surgery. She is having flatus. But his been 2 days since her last bowel movement. Prior to that she had been having diarrhea and had been taking medications to slow the diarrhea. She had a CTA of the chest that showed no evidence of pulmonary embolism. Distended gastric lumen with suspected reflux extending into the esophagus to the near lung apex and moderate right pleural effusion. Patient does have NG tube in place. She had a large output of 1800 mL of brownish output. Patient denies any nausea or vomiting. Patient denies any prior abdominal surgeries. Patient has been hypotensive. She is being seen by pulmonary service regarding shortness of breath and pleural effusion PAST MEDICAL HISTORY: Ovarian cancer, hyperlipidemia, hypertension PAST SURGICAL HISTORY: See below MEDICATIONS: See below ALLERGIES: See below SOCIAL HISTORY: No illicit drug use. REVIEW OF SYSTEMS: CONSTITUTIONAL: Denies fever or chills. HEENT: Denies blurred vision, vision changes, or eye pain. Denies hemoptysis CARDIOVASCULAR: Denies chest pain or pressure. RESPIRATORY: No shortness of breath. GASTROINTESTINAL: See HPI for pertinent findings HEMATOLOGIC: Denies bleeding disorders. GENITOURINARY: Denies any blood in urine or increased urinary frequency. SKIN: Denies pruitis. Denies rash. PHYSICAL EXAM: VITAL SIGNS: Reviewed GENERAL: Well-developed in no acute distress. HEENT: No sclera icterus. Extraocular movements grossly intact. Moist buccal mucosa. Head is atraumatic, normocephalic. No nasal drainage. ABDOMEN: Soft. She has mild tenderness left lower abdomen. Mildly distended. NEUROLOGIC: Alert and oriented. Cranial nerves II through XII grossly intact. LABORATORY DATA: WBC is 14.8-11 HGB 9.3 platelets 557 INR 1.5 D-dimer 2.67 Sodium is 133 potassium 5.8 creatinine 1.07 Magnesium 1.8 IMAGING: CT of the chest no evidence of PE. Distended gastric lumen was suspected reflux extending into the esophagus up to the near the lung and apexes. Moderate right pleural effusion with associated atelectasis. Anasarca of the soft tissues. Hepatic steatosis. Trace ascites and upper abdomen which is partially visualized. ASSESSMENT: 1. Abdominal distention with distended gastric lumen was suspected reflux extending into the esophagus up to near the lung apex noted on CT 2. History of bowel obstruction managed conservatively 3. History of ovarian cancer 4. History of prior abdominal paracentesis for ascites PLAN: -Computed tomography scan abdomen and pelvis ordered for further evaluation of possible bowel obstruction -Continue NG tube for decompression -Keep patient nothing by mouth -Start normal saline at 75 mL an hour Physician Senior Sales Manager note has been reviewed by physician. Signing provider agrees with the documented findings, assessment, and plan of care. Past Medical History Past Medical History: Hyperlipidemia, Hypertension History of Any Multi-Drug Resistant Organisms: None Reported Past Surgical History: Tonsillectomy Past Anesthesia/Blood Transfusion Reactions: No Reported Reaction Past Psychological History: No Psychological Hx Reported Smoking Status: Unknown if ever smoked Past Alcohol Use History: None Reported Past Drug Use History: None Reported Medications and Allergies Home Medications Medication Instructions Recorded Confirmed Type Felodipine [Felodipine ER] 10 mg PO DAILY 03/03/14 08/05/22 History Potassium Chloride [Klor-Con 20] 20 meq PO SUTHFRSA 03/03/14 08/05/22 History Pravastatin Sodium [Pravachol] 80 mg PO HS 03/03/14 08/05/22 History Potassium Chloride [Klor-Con M20] 40 meq PO MOTUWE 06/14/22 08/05/22 History Acetaminophen [Tylenol] 650 mg PO Q8H PRN 08/05/22 08/05/22 History Cholestyramine (with Sugar) 4 gm PO Q4H 08/05/22 08/05/22 History [Cholestyramine Packet] Diphenoxylate HCl/Atropine 1 tab PO QID PRN 08/05/22 08/05/22 History [Lomotil 2.5-0.025 mg Tablet] Docusate Sodium [Dok] 100 mg PO BID@0800,1700 08/05/22 08/05/22 History Famotidine [Pepcid] 40 mg PO DAILY 08/05/22 08/05/22 History Furosemide [Lasix] 20 mg PO DAILY 08/05/22 08/05/22 History HYDROcodone/APAP 5-325MG [[place] 1 tab PO Q6H PRN 08/05/22 08/05/22 History 5-325] Ipratropium-Albuterol Nebulize 3 ml INHALATION RT-Q6H PRN 08/05/22 08/05/22 History [Duoneb 0.5 mg-3 mg/3 ml Soln] Loperamide HCl [Imodium A-D] 2 mg PO Q6H 08/05/22 08/05/22 History Mag Hydrox/Al Hydrox/Simeth 30 ml PO Q6H PRN 08/05/22 08/05/22 History [Maalox] Magnesium Hydroxide [Milk of 7,200 mg PO Q48H PRN 08/05/22 08/05/22 History Magnesia Concentrate] Metoclopramide HCl [Reglan] 5 mg PO BID@0800,1700 08/05/22 08/05/22 History Metoprolol Succinate (ER) [Toprol 25 mg PO DAILY 08/05/22 08/05/22 History Xl] Na Phos,M-B/Na Phos,Di-Ba [Fleet 133 ml RECTAL DAILY PRN 08/05/22 08/05/22 History Adult] Naproxen [Naprosyn] 500 mg PO BID@0800,1700 08/05/22 08/05/22 History Pantoprazole Sodium [Protonix] 40 mg PO BID@0800,1700 08/05/22 08/05/22 History Prochlorperazine [Compazine] 10 mg PO TID PRN 08/05/22 08/05/22 History SILVER sulfADIAZINE Cream 1 applic TOPICAL BID 08/05/22 08/05/22 History [Silvadene 1% Cream] Spironolactone [Aldactone] 25 mg PO DAILY 08/05/22 08/05/22 History Tolterodine Tartrate [Tolterodine 4 mg PO DAILY 08/05/22 08/05/22 History Tartrate ER] bisacodyL [Dulcolax] 10 mg RECTAL DAILY PRN 08/05/22 08/05/22 History ondansetron HCL [Zofran] 8 mg PO Q8HR PRN 08/05/22 08/05/22 History Allergies Allergy/AdvReac Type Severity Reaction Status Date / Time No Known Allergies Allergy Verified 08/05/22 20:05 Surgical - Exam Vital Signs Temp Pulse Resp BP Pulse Ox 97.6 F 98 22 103/68 95 08/05/22 16:55 08/05/22 16:55 08/05/22 16:55 08/05/22 16:55 08/05/22 16:55 Results - Labs 08/05/22 17:25 08/06/22 05:24 Abnormal Lab Results - Last 24 Hours (Table) 08/05/22 08/05/22 08/05/22 Range/Units 17:25 17:25 17:25 WBC 14.8 H (3.8-10.6) k/uL RBC 3.63 L (3.80-5.40) m/uL Hgb 9.3 L D (11.4-16.0) gm/dL Hct 29.3 L (34.0-46.0) % RDW 20.4 H (11.5-15.5) % Plt Count 557 H (150-450) k/uL Neutrophils # (Manual) 13.30 H (1.3-7.7) k/uL PT 15.0 H (9.0-12.0) sec INR 1.5 H (<1.2) D-Dimer (<0.60) mg/L FEU Sodium 133 L (137-145) mmol/L Potassium 6.1 H* (3.5-5.1) mmol/L Chloride 108 H (98-107) mmol/L Carbon Dioxide 18 L (22-30) mmol/L BUN 36 H (7-17) mg/dL Creatinine 1.07 H (0.52-1.04) mg/dL Calcium 7.6 L (8.4-10.2) mg/dL Total Protein 5.1 L (6.3-8.2) g/dL Albumin 2.1 L (3.5-5.0) g/dL 08/05/22 08/05/22 08/06/22 Range/Units 17:25 18:42 05:24 WBC (3.8-10.6) k/uL RBC (3.80-5.40) m/uL Hgb (11.4-16.0) gm/dL Hct (34.0-46.0) % RDW (11.5-15.5) % Plt Count (150-450) k/uL Neutrophils # (Manual) (1.3-7.7) k/uL PT (9.0-12.0) sec INR (<1.2) D-Dimer 2.67 H (<0.60) mg/L FEU Sodium (137-145) mmol/L Potassium 6.3 H* 5.8 H (3.5-5.1) mmol/L Chloride (98-107) mmol/L Carbon Dioxide (22-30) mmol/L BUN (7-17) mg/dL Creatinine (0.52-1.04) mg/dL Calcium (8.4-10.2) mg/dL Total Protein (6.3-8.2) g/dL Albumin (3.5-5.0) g/dL Diabetes panel 08/05/22 08/05/22 08/06/22 Range/Units 17:25 18:42 05:24 Sodium 133 L (137-145) mmol/L Potassium 6.1 H* 6.3 H* 5.8 H (3.5-5.1) mmol/L Chloride 108 H (98-107) mmol/L Carbon Dioxide 18 L (22-30) mmol/L BUN 36 H (7-17) mg/dL Creatinine 1.07 H (0.52-1.04) mg/dL Glucose 83 (74-99) mg/dL Calcium 7.6 L (8.4-10.2) mg/dL AST 26 (14-36) U/L ALT 19 (4-34) U/L Alkaline Phosphatase 109 (38-126) U/L Total Protein 5.1 L (6.3-8.2) g/dL Albumin 2.1 L (3.5-5.0) g/dL Calcium panel 08/05/22 Range/Units 17:25 Calcium 7.6 L (8.4-10.2) mg/dL Albumin 2.1 L (3.5-5.0) g/dL Pituitary panel 11/15/22 11/15/22 11/16/22 Range/Units 17:25 18:42 05:24 Sodium 133 L (137-145) mmol/L Potassium 6.1 H* 6.3 H* 5.8 H (3.5-5.1) mmol/L Chloride 108 H (98-107) mmol/L Carbon Dioxide 18 L (22-30) mmol/L BUN 36 H (7-17) mg/dL Creatinine 1.07 H (0.52-1.04) mg/dL Glucose 83 (74-99) mg/dL Calcium 7.6 L (8.4-10.2) mg/dL Adrenal panel 08/05/22 08/05/22 08/06/22 Range/Units 17:25 18:42 05:24 Sodium 133 L (137-145) mmol/L Potassium 6.1 H* 6.3 H* 5.8 H (3.5-5.1) mmol/L Chloride 108 H (98-107) mmol/L Carbon Dioxide 18 L (22-30) mmol/L BUN 36 H (7-17) mg/dL Creatinine 1.07 H (0.52-1.04) mg/dL Glucose 83 (74-99) mg/dL Calcium 7.6 L (8.4-10.2) mg/dL Total Bilirubin 0.5 (0.2-1.3) mg/dL AST 26 (14-36) U/L ALT 19 (4-34) U/L Alkaline Phosphatase 109 (38-126) U/L Total Protein 5.1 L (6.3-8.2) g/dL Albumin 2.1 L (3.5-5.0) g/dL
[2022-08-06] MEDS ORDERED: HYDROcodone/APAP 5-325MG 1 EACH TAB PO PRN (12:26)
[2022-08-06] MEDS ORDERED: SODIUM BICARB 8.4% 50 ML SYR (1 MEQ/ML) IV ONE (12:27)
[2022-08-06] MEDS ORDERED: DEXTROSE 50% SYRINGE 50 ML IVP ONE (12:27)
[2022-08-06] MEDS ORDERED: INSULIN REGULAR 100 UNIT/ML VIAL (IV) IV ONE (12:27)
--- NOTE | 2022-08-06 13:13 | CT ---
EXAMINATION TYPE: CT abdomen pelvis wo con DATE OF EXAM: 08/06/2022 COMPARISON: 06/14/2022 HISTORY: bowel obstruction CT DLP: 1202 mGycm Examination of the solid and hollow viscera is limited given the lack of contrast. FINDINGS: LUNG BASES: Moderate right basilar effusion partially imaged as well as the basilar compressive atele ctasis. Underlying infiltrate is not excluded. Nodularity adjacent to the right heart border may refl ect pulmonary nodule and/or epiphrenic lymph nodes. LIVER/GB: Small layering gallstones. No space-occupying hepatic lesion. PANCREAS: No pancreatic mass identified. No inflammatory process seen. SPLEEN: No evidence for splenomegaly. No intrasplenic lesions seen. ADRENALS: No adrenal nodules identified. No evidence for thickening. KIDNEYS: No evidence for renal mass. No nephrolithiasis. No hydronephrosis. BOWEL: NG tube is in place ending into the stomach. There are dilated loops of small bowel measuring up to 4.5 cm extending distally. Contrast is only identified however within the jejunal loops at this time. There is intra-abdominal free air which is suspicious for perforated viscus. Lymph nodes: No evidence for adenopathy greater than 1 cm. Abdominal aorta: Atheromatous changes seen. No evidence for aneurysm. Genital organs: Complex pelvic mass is redemonstrated. Correlate for ovarian carcinoma Other: Persistent but much improved ascites throughout the abdomen and pelvis. Features of anasarca. IMPRESSION: 1. Moderate free air concerning for perforated viscus. Location of Perforation is indeterminate. 2. Distal small bowel obstruction. As noted contrast is only visualized within the jejunal loops at t his time. 3. Complex pelvic mass suspicious for ovarian carcinoma. 4. Right basilar pleural effusion and atelectasis and/or infiltrate. 5. Ascites has diminished in the interval. A Red level critical message alert has been initiated for Yossi Proctor via the [employer] System on 08/06/2022 1:11 PM. This message alert has been sent to Yossi Proctor via the preferences provided by the clinician for the receipt of Radiology Critical Findings. Message ID [id number].
[2022-08-06] MEDS ORDERED: SODIUM ZIRCONIUM CYCLOSILICATE 10 GM PACKET PO ONE ×2 (14:00→17:09)
[2022-08-06] MEDS ORDERED: LACTATED RINGERS 1,000 ML IV ONE ×2 (14:00→18:10)
[2022-08-06 14:39] VITALS: BMI 32.4
--- NOTE | 2022-08-06 14:44 | P.HPIM ---
History of Present Illness H&P Date: 08/06/22 This is a 66-year-old female who follows with Dr. Favian Alonzo in the office. Medical history significant for hypertension, hyperlipidemia and recent diagnosis of ovarian cancer has undergone one chemotherapy treatment. Patient presents to the emergency room with concern for difficulty breathing that was worsening throughout the day yesterday. Patient feels that she has to much fluid in her lungs and also in her belly. She has history of ovarian cancer and has had one chemo treatment, her oncologist is out of [facility]. She was recently admitted at [facility] for bowel obstruction with conservative management and resolution and was discharge to rehab, she has been at [facility]. Family at bedside states there was talk at one point about a tumor possibly obstructing bowels. Her main complaint is trouble breathing. Denies nausea, vomiting. Stool has been mostly diarrhea which she states it was beginning to form up. She does have chronic peripheral edema which is increased from pr evious. Chest x-ray performed shows right pleural effusion with associated atelectasis. Patient had chest CTA completed showing no evidence for pulmonary embolism there is distended gastric lumen suspected reflux extending into the esophagus. There is also a moderate pleural effusion with associated atelectasis, anasarca of the soft tissues, hepatic steatosis most trace ascites in the upper abdomen. Patient is given a 1 L fluid bolus and started on normal saline at 75 mL per hour, oncology, general surgery, pulmonary services have been consultated. She has NG tube in place. Patient was placed nothing by mouth. CT abdomen pelvis has been ordered. Patient presented with a white count of 14.8, hemoglobin 9.3, d-dimer 2.67, sodium 133, potassium 6.1 on admission. BUN 36, creatinine 1.07. Troponin is negative proBNP 1090. Patient is hypotensive with a blood pressure in the 80s systolic. She also received cocktail with insulin, dextrose, bicarbonate for elevated potassium of 6.1. REVIEW OF SYSTEMS: CONSTITUTIONAL: No fever, no malaise, no fatigue. HEENT: No recent visual problems or hearing problems. Denied any sore throat. CARDIOVASCULAR: No chest pain, orthopnea, PND, no palpitations, no syncope. PULMONARY: Reports shortness of breath, no cough, no hemoptysis GASTROINTESTINAL: Denies abdominal pain, reports abdominal distention and fullness, loose stool NEUROLOGICAL: No headaches, no weakness, no numbness. HEMATOLOGICAL: Denies any bleeding or petechiae. GENITOURINARY: Denies any burning micturition, frequency, or urgency. MUSCULOSKELETAL/RHEUMATOLOGICAL: Reports lower extremity edema ENDOCRINE: Denies any polyuria or polydipsia. The rest of the 14-point review of systems is negative. PHYSICAL EXAMINATION: GENERAL: The patient is alert and oriented x3, not in any acute distress. Well developed, well nourished. HEENT: Pupils are round and equally reacting to light. EOMI. No scleral icterus. No conjunctival pallor. Normocephalic, atraumatic. No pharyngeal erythema. No thyromegaly. NG tube in place to suction with frothy bilious content CARDIOVASCULAR: S1 and S2 present. No murmurs, rubs, or gallops. PULMONARY: Chest is clear to auscultation, no wheezing or crackles. ABDOMEN: Soft, nontender, nondistended, hypoactive bowel sounds. No palpable organomegaly. MUSCULOSKELETAL: No joint swelling or deformity. EXTREMITIES: No cyanosis, clubbing. +2 peripheral edema. NEUROLOGICAL: Gross neurological examination did not reveal any focal deficits. SKIN: No rashes. Saccral ulcer Assessment and plan Assessment Shortness of breath Right pleural effusion and abdominal ascites possibly secondary to ovarian cancer Elevated d-dimer CT angiography negative for pulmonary embolism Ovarian cancer requiring paracentesis, thoracentesis status post one round of chemotherapy History of recent bowel obstruction requiring hospitalization History of hypertension currently hypotensive with a blood pressure in the 80s systolic Mild acute kidney injury most likely prerenal azotemia from poor oral intake patient is also on lasix and aldactone outpatient with NSAID use Leukocytosis Anemia Hyperkalemia, down to 5.8. Hyponatremia, hypovolemic Hyperlipidemia Gastroesophageal reflux disease GI Prophylaxis DVT Prophylaxis Plan Continue with NG tube, patient is currently NPO Abdominal Pelvis CT ordered Continue with IV fluids Lokelma dose x 1 Monitor blood glucose Blood pressure medications have been placed on hold Aldactone and lasix are being held at this time Pulmonary, oncology consultation The impression and plan of care has been dictated by Rosalina Pedraza, Nurse Practitioner as directed. Dr. Liza MD I have performed a history and physical examination and medical decision making of this patient, discussed the same with the dictator, and agree with the dictators assessment and plan as written, documented as a scribe. Based on total visit time, I have performed more than 50% of this visit. Past Medical History Past Medical History: Hyperlipidemia, Hypertension History of Any Multi-Drug Resistant Organisms: None Reported Past Surgical History: Tonsillectomy Past Anesthesia/Blood Transfusion Reactions: No Reported Reaction Past Psychological History: No Psychological Hx Reported Smoking Status: Unknown if ever smoked Past Alcohol Use History: None Reported Past Drug Use History: None Reported Medications and Allergies Home Medications Medication Instructions Recorded Confirmed Type Felodipine [Felodipine ER] 10 mg PO DAILY 03/03/14 08/05/22 History Potassium Chloride [Klor-Con 20] 20 meq PO SUTHFRSA 03/03/14 08/05/22 History Pravastatin Sodium [Pravachol] 80 mg PO HS 03/03/14 08/05/22 History Potassium Chloride [Klor-Con M20] 40 meq PO MOTUWE 06/14/22 08/05/22 History Acetaminophen [Tylenol] 650 mg PO Q8H PRN 08/05/22 08/05/22 History Cholestyramine (with Sugar) 4 gm PO Q4H 08/05/22 08/05/22 History [Cholestyramine Packet] Diphenoxylate HCl/Atropine 1 tab PO QID PRN 08/05/22 08/05/22 History [Lomotil 2.5-0.025 mg Tablet] Docusate Sodium [Dok] 100 mg PO BID@0800,1700 08/05/22 08/05/22 History Famotidine [Pepcid] 40 mg PO DAILY 08/05/22 08/05/22 History Furosemide [Lasix] 20 mg PO DAILY 08/05/22 08/05/22 History HYDROcodone/APAP 5-325MG [[place] 1 tab PO Q6H PRN 08/05/22 08/05/22 History 5-325] Ipratropium-Albuterol Nebulize 3 ml INHALATION RT-Q6H PRN 08/05/22 08/05/22 History [Duoneb 0.5 mg-3 mg/3 ml Soln] Loperamide HCl [Imodium A-D] 2 mg PO Q6H 08/05/22 08/05/22 History Mag Hydrox/Al Hydrox/Simeth 30 ml PO Q6H PRN 08/05/22 08/05/22 History [Maalox] Magnesium Hydroxide [Milk of 7,200 mg PO Q48H PRN 08/05/22 08/05/22 History Magnesia Concentrate] Metoclopramide HCl [Reglan] 5 mg PO BID@0800,1700 08/05/22 08/05/22 History Metoprolol Succinate (ER) [Toprol 25 mg PO DAILY 08/05/22 08/05/22 History Xl] Na Phos,M-B/Na Phos,Di-Ba [Fleet 133 ml RECTAL DAILY PRN 08/05/22 08/05/22 History Adult] Naproxen [Naprosyn] 500 mg PO BID@0800,1700 08/05/22 08/05/22 History Pantoprazole Sodium [Protonix] 40 mg PO BID@0800,1700 08/05/22 08/05/22 History Prochlorperazine [Compazine] 10 mg PO TID PRN 08/05/22 08/05/22 History SILVER sulfADIAZINE Cream 1 applic TOPICAL BID 08/05/22 08/05/22 History [Silvadene 1% Cream] Spironolactone [Aldactone] 25 mg PO DAILY 08/05/22 08/05/22 History Tolterodine Tartrate [Tolterodine 4 mg PO DAILY 08/05/22 08/05/22 History Tartrate ER] bisacodyL [Dulcolax] 10 mg RECTAL DAILY PRN 08/05/22 08/05/22 History ondansetron HCL [Zofran] 8 mg PO Q8HR PRN 08/05/22 08/05/22 History Allergies Allergy/AdvReac Type Severity Reaction Status Date / Time No Known Allergies Allergy Verified 08/05/22 20:05 Physical Exam Vitals: Vital Signs Temp Pulse Pulse Resp BP BP Pulse Ox 08/06/22 06:38 97.7 F 96 20 82/53 08/06/22 06:18 81/48 08/06/22 04:00 80/50 08/06/22 02:47 97.4 F L 83 16 83/53 96 08/05/22 23:42 82 16 92/57 96 08/05/22 22:43 85 18 94/53 95 08/05/22 20:31 101 H 22 97/51 96 08/05/22 19:22 98.2 F 97 24 85/58 95 08/05/22 18:30 98 24 87/60 96 08/05/22 17:30 97 24 93/63 95 08/05/22 17:00 96 24 88/63 95 08/05/22 16:55 97.6 F 98 22 103/68 95 Intake and Output 08/05/22 08/06/22 08/06/22 22:59 06:59 14:59 Intake Total 0 Output Total 1800 Balance -1800 0 Intake: Oral 0 Output: Gastric Drainage 1800 Other: Voiding Method External Catheter Weight 93.894 kg 93.894 kg Results CBC & Chem 7: 08/05/22 17:25 08/06/22 05:24 Labs: Abnormal Lab Results - Last 24 Hours (Table) 08/05/22 08/05/22 08/05/22 Range/Units 17:25 17:25 17:25 WBC 14.8 H (3.8-10.6) k/uL RBC 3.63 L (3.80-5.40) m/uL Hgb 9.3 L D (11.4-16.0) gm/dL Hct 29.3 L (34.0-46.0) % RDW 20.4 H (11.5-15.5) % Plt Count 557 H (150-450) k/uL Neutrophils # (Manual) 13.30 H (1.3-7.7) k/uL PT 15.0 H (9.0-12.0) sec INR 1.5 H (<1.2) D-Dimer (<0.60) mg/L FEU Sodium 133 L (137-145) mmol/L Potassium 6.1 H* (3.5-5.1) mmol/L Chloride 108 H (98-107) mmol/L Carbon Dioxide 18 L (22-30) mmol/L BUN 36 H (7-17) mg/dL Creatinine 1.07 H (0.52-1.04) mg/dL Calcium 7.6 L (8.4-10.2) mg/dL Total Protein 5.1 L (6.3-8.2) g/dL Albumin 2.1 L (3.5-5.0) g/dL 08/05/22 08/05/22 08/06/22 Range/Units 17:25 18:42 05:24 WBC (3.8-10.6) k/uL RBC (3.80-5.40) m/uL Hgb (11.4-16.0) gm/dL Hct (34.0-46.0) % RDW (11.5-15.5) % Plt Count (150-450) k/uL Neutrophils # (Manual) (1.3-7.7) k/uL PT (9.0-12.0) sec INR (<1.2) D-Dimer 2.67 H (<0.60) mg/L FEU Sodium (137-145) mmol/L Potassium 6.3 H* 5.8 H (3.5-5.1) mmol/L Chloride (98-107) mmol/L Carbon Dioxide (22-30) mmol/L BUN (7-17) mg/dL Creatinine (0.52-1.04) mg/dL Calcium (8.4-10.2) mg/dL Total Protein (6.3-8.2) g/dL Albumin (3.5-5.0) g/dL Thrombosis Risk Factor Assmnt - Choose All That Apply Each Factor Represents 1 point: Medical pt on bed rest, Obesity (BMI >25), Swollen legs (current) Each Risk Factor Represents 2 Points: Age 61-74 years, Patient confined to bed Thrombosis Risk Factor Assessment Total Risk Factor Score: 7 Thrombosis Risk Factor Assessment Level: High Risk Assessment and Plan Time with Patient: Greater than 30
[2022-08-06 16:11] LABS: Glucose,Whole Blood 69 mg/dL (70-110)
[2022-08-06 16:32] LABS: African American GFR (CKD) 53 (>60 ml/min/1.73 sqM); Anion Gap 8 mmol/L; Blood Urea Nitrogen 42 mg/dL (7-17); Calcium 7.5 mg/dL (8.4-10.2); Carbon Dioxide 19 mmol/L (22-30); Chloride 107 mmol/L (98-107); Glucose 65 mg/dL (74-99); Non-African American GFR(CKD) 46 (>60 ml/min/1.73 sqM); Potassium 5.5 mmol/L (3.5-5.1); Sodium 134 mmol/L (137-145)
[2022-08-06] MEDS ORDERED: IV FLUID CONTINUATION 1,000 ML IV ONE (16:36)
[2022-08-06 17:02] LABS: Glucose,Whole Blood 83 mg/dL (70-110)
[2022-08-06] MEDS ORDERED: SUCCINYLCHOLINE CHLORIDE 200 MG/10 ML VIAL IV ONE (17:27)
[2022-08-06] MEDS ORDERED: NEOSTIGMINE 1 MG/ML 10 ML VIAL ONE (17:27)
[2022-08-06] MEDS ORDERED: GLYCOPYRROLATE 0.2 MG/ML 2 ML VIAL ONE (17:27)
[2022-08-06] MEDS ORDERED: fentaNYL (PF) 50 MCG/ML 2 ML AMP ONE (17:27)
[2022-08-06] MEDS ORDERED: HEPARIN SODIUM,PORCINE 5,000 UNIT/ML 1 ML VIAL ONE (17:27)
[2022-08-06] MEDS ORDERED: ROCURONIUM 10 MG/ML (5 ML VIAL) IV ONE (17:27)
[2022-08-06] MEDS ORDERED: LIDOCAINE 2% INJ 20 MG/ML (2 ML VIAL) ONE (17:27)
[2022-08-06] MEDS ORDERED: PHENYLEPHRINE-0.9% NACL SYG 1,000 MCG/10 ML SYRINGE ONE (17:27)
[2022-08-06] MEDS ORDERED: ETOMIDATE 2 MG/ML 10 ML VIAL ONE (17:27)
[2022-08-06] MEDS ORDERED: SODIUM CHLORIDE 0.9% 50 ML with ceFAZolin 2,000 MG IV ONE ×2 (17:32)
[2022-08-06] MEDS ORDERED: LORazepam 1 MG/0.5 ML VIAL IV PRN (18:23)
[2022-08-06] MEDS ORDERED: ATROPINE OPHTH SOLN 1% 5ML BTL SUBLINGUAL PRN (18:23)
[2022-08-06] MEDS ORDERED: MORPHINE SULFATE 4 MG/ML SYRINGE IV PRN (18:23)
[2022-08-06] MEDS ORDERED: MORPHINE SULFATE 2 MG/ML SYRINGE IV PRN (18:23)
[2022-08-06] MEDS: DEXTROSE 5%-0.9% NACL 1,000 ML IV SCH (18:30)
[2022-08-06] MEDS: PIPERACILLIN-TAZOBACTAM 3.375 GM in SODIUM CHLORIDE 0.9% 100 ML IVPB SCH (18:30)
--- NOTE | 2022-08-06 18:32 | P.OP ---
Date of Procedure: 08/06/22 Preoperative Diagnosis: Small bowel obstruction Perforated viscus Postoperative Diagnosis: Metastatic ovarian cancer Small bowel perforation proximal jejunum Large pelvic mass causing complete small bowel obstruction with evidence of ovarian cancer throughout small bowel and abdomen Procedure(s) Performed: Exploratory laparotomy small bowel resection Decompression small bowel Anesthesia: ANCA Surgeon: Yossi Proctor Estimated Blood Loss (ml): 50 Pathology: other (Small bowel) Condition: critical Disposition: ICU Description of Procedure: The patient's placed on the operative table in supine position. She received general endotracheal anesthesia. Her abdomen was prepped and draped in sterile fashion. Patient have a mass in the right lower quadrant.. This was palpated through the abdominal wall. The skin was incised in midline. The abdomen was entered. There is retrograde air upon entering the abdomen. There was ascites seen throughout the abdomen. The small bowel was grossly dilated. The small bowel appeared to be completely obstructed from a mass in the right lower quadrant. In the mid small bowel there was evidence of metastatic disease with a large fungating mass growing off of the proximal ileum/jejunum. The bowel was followed up and in the proximal jejunum right after ligament of Treitz there was evidence of a small bowel perforation. This is most likely due to small bowel obstruction. The area of perforation was transected proximally distally using a GI stapler then using the Enseal device the mesentery was divided and specimens of pathology. This point I broke scrub and talked with the patient's family. I do not think the patient's disease is compatible with limiting explained to the patient's family that I think that the procedure should be stopped and the patient be made comfort care. I'll a discussion patient's family. The patient's family history is an excellent understanding of the patient's disease. I re-scrubbed in the abdomen was irrigated. The bowel was decompressed through the distal staple line of the small bowel resection. The enterotomy after decompression was closed with a repeat stapling of the bowel. M[place]ney irrigated again. The fascia was then closed in looped #1 PDS suture. Skin was closed s taples. Patient was sent back to the ICU for comfort care measures
[2022-08-06] MEDS: MORPHINE SULFATE (100 MG/2 ML) 100 MG in SODIUM CHLORIDE 0.9% 100 ML IV SCH ×2 (18:47→22:06)
[2022-08-06] MEDS ORDERED: propofoL 100 ML IV ONE (18:59)
[2022-08-06] MEDS ORDERED: SCOPOLAMINE 1 MG/72 HR PATCH TRANSDERM SCH (19:00)
[2022-08-06 20:14] VITALS: TEMP 97.7
[2022-08-06] MEDS ORDERED: FAMOTIDINE 20 MG/2 ML VIAL IV SCH (21:00)
[2022-08-06] MEDS ORDERED: PRAVASTATIN SODIUM 80 MG TAB PO SCH (21:00)
--- NOTE | 2022-08-06 22:08 | P.CONS ---
History of Present Illness - Reason for Consult Consult date: 08/06/22 ov carcinoma Requesting physician: Arslan Desai - Chief Complaint SOB - History of Present Illness Mrs. Noguera is a pleasant female with a PMH significant for recently diagnosed ovarian carcinoma. She was seen in the ER 06/11/22 with c/o crampy abd discomfort, distension and new onset diarrhea. D-dimer was elevated, CTA was neg for PE, rt. pl effusion noted, lt hydronephrosis and large amt of ascites. CT AP revealed 14cm pelvic mass, felt to be causing mechanical obstruction of lt ureter. She was transferred to [facility], [place], for [employer] [facility]c evalu ation. She was medically treated for bowel obstruction. Pt was seen by Dr. Arriaga. She was ultimately diagnosed with ovarian carcinoma-from ascitic fluid? She was discharged and had her 1st cycle of chemo the next day. Since then she did ok up until the last few days. She was noting progressive abd distension, then SOB and diarrhea. She thinks she has had maybe 3 paracentesis. She is currently admitted with c/o progressive SOB, denies fever, nausea, vomiting, dysuria or difficulty urinating, no bleeding to report. Work up showed elevated lactic acid, mild normocytic anemia-considering recent chemo-cr elevated. CT AP reports free air suspicious for perforated viscous. Surgery has seen pt, she has NG when seen. Review of Systems 10 point ROS is neg except as stated in HPI Past Medical History Past Medical History: Cancer, Hyperlipidemia, Hypertension History of Any Multi-Drug Resistant Organisms: None Reported Past Surgical History: Tonsillectomy Past Anesthesia/Blood Transfusion Reactions: No Reported Reaction Past Psychological History: No Psychological Hx Reported Smoking Status: Unknown if ever smoked Past Alcohol Use History: None Reported Past Drug Use History: None Reported Medications and Allergies Home Medications Medication Instructions Recorded Confirmed Type Felodipine [Felodipine ER] 10 mg PO DAILY 03/03/14 08/05/22 History Potassium Chloride [Klor-Con 20] 20 meq PO SUTHFRSA 03/03/14 08/05/22 History Pravastatin Sodium [Pravachol] 80 mg PO HS 03/03/14 08/05/22 History Potassium Chloride [Klor-Con M20] 40 meq PO MOTUWE 06/14/22 08/05/22 History Acetaminophen [Tylenol] 650 mg PO Q8H PRN 08/05/22 08/05/22 History Cholestyramine (with Sugar) 4 gm PO Q4H 08/05/22 08/05/22 History [Cholestyramine Packet] Diphenoxylate HCl/Atropine 1 tab PO QID PRN 08/05/22 08/05/22 History [Lomotil 2.5-0.025 mg Tablet] Docusate Sodium [Dok] 100 mg PO BID@0800,1700 08/05/22 08/05/22 History Famotidine [Pepcid] 40 mg PO DAILY 08/05/22 08/05/22 History Furosemide [Lasix] 20 mg PO DAILY 08/05/22 08/05/22 History HYDROcodone/APAP 5-325MG [[place] 1 tab PO Q6H PRN 08/05/22 08/05/22 History 5-325] Ipratropium-Albuterol Nebulize 3 ml INHALATION RT-Q6H PRN 08/05/22 08/05/22 History [Duoneb 0.5 mg-3 mg/3 ml Soln] Loperamide HCl [Imodium A-D] 2 mg PO Q6H 08/05/22 08/05/22 History Mag Hydrox/Al Hydrox/Simeth 30 ml PO Q6H PRN 08/05/22 08/05/22 History [Maalox] Magnesium Hydroxide [Milk of 7,200 mg PO Q48H PRN 08/05/22 08/05/22 History Magnesia Concentrate] Metoclopramide HCl [Reglan] 5 mg PO BID@0800,1700 08/05/22 08/05/22 History Metoprolol Succinate (ER) [Toprol 25 mg PO DAILY 08/05/22 08/05/22 History Xl] Na Phos,M-B/Na Phos,Di-Ba [Fleet 133 ml RECTAL DAILY PRN 08/05/22 08/05/22 History Adult] Naproxen [Naprosyn] 500 mg PO BID@0800,1700 08/05/22 08/05/22 History Pantoprazole Sodium [Protonix] 40 mg PO BID@0800,1700 08/05/22 08/05/22 History Prochlorperazine [Compazine] 10 mg PO TID PRN 08/05/22 08/05/22 History SILVER sulfADIAZINE Cream 1 applic TOPICAL BID 08/05/22 08/05/22 History [Silvadene 1% Cream] Spironolactone [Aldactone] 25 mg PO DAILY 08/05/22 08/05/22 History Tolterodine Tartrate [Tolterodine 4 mg PO DAILY 08/05/22 08/05/22 History Tartrate ER] bisacodyL [Dulcolax] 10 mg RECTAL DAILY PRN 08/05/22 08/05/22 History ondansetron HCL [Zofran] 8 mg PO Q8HR PRN 08/05/22 08/05/22 History Allergies Allergy/AdvReac Type Severity Reaction Status Date / Time No Known Allergies Allergy Verified 08/05/22 20:05 Physical Exam Vitals: Vital Signs Temp Pulse Pulse Resp BP BP Pulse Ox 08/06/22 11:26 88 08/06/22 08:00 20 08/06/22 06:38 97.7 F 96 20 82/53 08/06/22 06:18 81/48 08/06/22 04:00 80/50 08/06/22 02:47 97.4 F L 83 16 83/53 96 08/05/22 23:42 82 16 92/57 96 08/05/22 22:43 85 18 94/53 95 08/05/22 20:31 101 H 22 97/51 96 08/05/22 19:22 98.2 F 97 24 85/58 95 08/05/22 18:30 98 24 87/60 96 08/05/22 17:30 97 24 93/63 95 08/05/22 17:00 96 24 88/63 95 08/05/22 16:55 97.6 F 98 22 103/68 95 Intake and Output 08/05/22 08/06/22 08/06/22 22:59 06:59 14:59 Intake Total 0 Output Total 1800 Balance -1800 0 Intake: Oral 0 Output: Gastric Drainage 1800 Other: Voiding Method External Catheter Diaper Weight 93.894 kg 93.894 kg - Constitutional General appearance: cooperative, no acute distress, thin - EENT Eyes: anicteric sclerae, EOMI ENT: hearing grossly normal, normal oropharynx - Neck Neck: no lymphadenopathy - Respiratory Respiratory: bilateral: diminished - Cardiovascular Rhythm: regular Heart sounds: normal: S1, S2 Abnormal Heart Sounds: no systolic murmur, no diastolic murmur, no rub, no S3 Gallop, no S4 Gallop, no click, no other leg Peripheral Edema: bilateral: Trace - Gastrointestinal General gastrointestinal: no absent bowel sounds, decreased bowel sounds, distended, no hepatomegaly, no hyperactive bowel sounds, no normal bowel sounds, no organomegaly, no rigid, no scaphoid, soft, no splenomegaly, no tenderness, no umbilical hernia, no ventral hernia - Integumentary Integumentary: pale - Neurologic Neurologic: CNII-XII intact - Musculoskeletal Musculoskeletal: generalized weakness - Psychiatric Psychiatric: A&O x's 3, appropriate affect, intact judgment & insight Results CBC & Chem 7: 08/05/22 17:25 08/06/22 16:02 Labs: Abnormal Lab Results - Last 24 Hours (Table) 08/05/22 08/05/22 08/05/22 Range/Units 17:25 17:25 17:25 WBC 14.8 H (3.8-10.6) k/uL RBC 3.63 L (3.80-5.40) m/uL Hgb 9.3 L D (11.4-16.0) gm/dL Hct 29.3 L (34.0-46.0) % RDW 20.4 H (11.5-15.5) % Plt Count 557 H (150-450) k/uL Neutrophils # (Manual) 13.30 H (1.3-7.7) k/uL PT 15.0 H (9.0-12.0) sec INR 1.5 H (<1.2) D-Dimer (<0.60) mg/L FEU Sodium 133 L (137-145) mmol/L Potassium 6.1 H* (3.5-5.1) mmol/L Chloride 108 H (98-107) mmol/L Carbon Dioxide 18 L (22-30) mmol/L BUN 36 H (7-17) mg/dL Creatinine 1.07 H (0.52-1.04) mg/dL Glucose (74-99) mg/dL Calcium 7.6 L (8.4-10.2) mg/dL Total Protein 5.1 L (6.3-8.2) g/dL Albumin 2.1 L (3.5-5.0) g/dL 08/05/22 08/05/22 08/06/22 Range/Units 17:25 18:42 05:24 WBC (3.8-10.6) k/uL RBC (3.80-5.40) m/uL Hgb (11.4-16.0) gm/dL Hct (34.0-46.0) % RDW (11.5-15.5) % Plt Count (150-450) k/uL Neutrophils # (Manual) (1.3-7.7) k/uL PT (9.0-12.0) sec INR (<1.2) D-Dimer 2.67 H (<0.60) mg/L FEU Sodium (137-145) mmol/L Potassium 6.3 H* 5.8 H (3.5-5.1) mmol/L Chloride (98-107) mmol/L Carbon Dioxide (22-30) mmol/L BUN (7-17) mg/dL Creatinine (0.52-1.04) mg/dL Glucose (74-99) mg/dL Calcium (8.4-10.2) mg/dL Total Protein (6.3-8.2) g/dL Albumin (3.5-5.0) g/dL 08/06/22 Range/Units 05:24 WBC (3.8-10.6) k/uL RBC (3.80-5.40) m/uL Hgb (11.4-16.0) gm/dL Hct (34.0-46.0) % RDW (11.5-15.5) % Plt Count (150-450) k/uL Neutrophils # (Manual) (1.3-7.7) k/uL PT (9.0-12.0) sec INR (<1.2) D-Dimer (<0.60) mg/L FEU Sodium (137-145) mmol/L Potassium 6.0 H (3.5-5.1) mmol/L Chloride 115 H (98-107) mmol/L Carbon Dioxide 16 L (22-30) mmol/L BUN 43 H (7-17) mg/dL Creatinine 1.23 H (0.52-1.04) mg/dL Glucose 71 L (74-99) mg/dL Calcium 7.9 L (8.4-10.2) mg/dL Total Protein 4.4 L (6.3-8.2) g/dL Albumin 1.8 L (3.5-5.0) g/dL Chest x-ray: report reviewed CT scan - chest: report reviewed Assessment and Plan (1) Ovarian cancer Current Visit: Yes Status: Acute Priority: High Code(s): C56.9 - MALIGNANT NEOPLASM OF UNSPECIFIED OVARY SNOMED Code(s): 192894195 (2) Pleural effusion Current Visit: Yes Status: Acute Priority: High Code(s): J90 - PLEURAL EFFUSION, NOT ELSEWHERE CLASSIFIED SNOMED Code(s): 04506338 Plan: Ovarina adenocarcinaom, s/p 1st cycle of chemo. Pt is not reporting significant SE, her labs are not suggesting severe toxicity. She will return to Dr. Arriaga after her current condition is resolved for assessment and further treatment plans Surgeon has seen pt, urgent surgery for perforation is recommended. Pending surgery and findings Reviewed husbands questions and concerns Will update Dr. Arriaga on pt hospital course in the next few days Attests: I have seen and examined pt, performed H&P, developed impression and plan of care. Discussed with dictator. Agree with documentation, dictated as a scribe.
[2022-08-07] MEDS: PIPERACILLIN-TAZOBACTAM 3.375 GM in SODIUM CHLORIDE 0.9% 100 ML IVPB SCH (00:16)
[2022-08-07] MEDS: MORPHINE SULFATE (100 MG/2 ML) 100 MG in SODIUM CHLORIDE 0.9% 100 ML IV SCH (03:02)
[2022-08-07 03:07] VITALS: BP 58/33; PULSE 76; RESP 4
[2022-08-07] MEDS: DEXTROSE 5%-0.9% NACL 1,000 ML IV SCH (03:07)
--- NOTE | 2022-08-07 22:38 | P.DS ---
Providers Date of admission: 08/05/22 21:35 Attending physician: Beau Samano Consults: 08/05/22 21:33 Consult Physician Urgent Consulting Provider: Jonathan Genao Consult Reason/Comments: Pleural effusion Do you want consulting provider notified?: Yes 08/05/22 21:34 Consult Physician Urgent Consulting Provider: Meg Arndt Consult Reason/Comments: Ovarian cancer Do you want consulting provider notified?: Yes 08/06/22 06:56 Consult Physician Urgent Consulting Provider: Yossi Proctor Consult Reason/Comments: NG tube/drainage Do you want consulting provider notified?: Yes Primary care physician: [facility] Course: Final Diagnosis Shortness of breath Small bowel perforation proximal Jejunum Complete small bowel obstruction secondary to large pelvic mass Right pleural effusion and abdominal ascites possibly secondary to metastatic ovarian cancer Elevated d-dimer CT angiography negative for pulmonary embolism Ovarian cancer requiring paracentesis, thoracentesis status post one round of chemotherapy History of recent bowel obstruction requiring hospitalization History of hypertension currently hypotensive Mild acute kidney injury most likely prerenal azotemia from poor oral intake patient is also on lasix and aldactone outpatient with NSAID use Leukocytosis Anemia Hyperkalemia, down to 5.8. Hyponatremia, hypovolemic Hyperlipidemia Gastroesophageal reflux disease No Code Patient on 08/07/22 at 0335 Preliminary cause of Peritonitis secondary to metastatic ovarian cancer Hospital Course This is a 66 year old female with recent diagnosis of ovarian carcinoma. Patient was admitted to this facility in May of 2022 and was found to have 14 cm pelvic mass that was causing mechanical obstruction of ureter and patient was transferred to tertiary care facility. She was evaluated by Dr. Bart boston at [facility] for [employer] [facility] and was diagnosed with ovarian cancer and underwent one round of chemo. Since she has developed progressive abdominal distention with diarrhea and also shortness of breath. She reports being admitted recently to [facility] as well for bowel obstruction and states she got the all clear from that. She has been at rehab. Reports undergoing 3 paracentesis and one thoracentesis since diagnosis. Patient reported no fever, no nausea, no vomiting, no dysuria, no blood in the stool or other sources of bleeding. She is alert x 3 and at bedside. NG tube was placed. She underwent chest CTA this admission revealing no pulmonary embolism, distended gastric lumen with suspected reflux extending into the esophagus up to near the lung apexes, moderate right pleural effusion with associated atelectasis, anasarca of the soft tissues, hepatic steatosis, traces ascites in upper abdomen partially visualized. She was admitted to the medical floor and consult placed to pulmonary and oncology services. Patient had blood pressure on high 80s to low 90s systolic, afebrile, maintaining oxygen saturation 96% on 2L nasal cannula, heart rate in the 90s. She was started on normal saline at 75 mls per hour. General surgery evaluated the patient and ordered abdominal pelvis CT which reveals moderate right basilar effusion/compressive atelectasis and pulmonary nodule vs. epiphrenic lymph nodes at the right heart border. Additionally, patient was found to have moderate free air concerning for perforated viscus with distal small bowel obstruction, complex pelvic mass suspicious for ovarian cancer. Patient had opted to undergo emergent surgery which reveals small bowel grossly obstructed from mass right lower quadrant with evidence of metastatic disease in the small bowel with large fungating mass growing off the proximal ileum/jejunum which then revealed small bowel perforation in the proximal jejunum most likely from bowel obstruction. The surgeon then discussed with family overall prognosis and extent of disease and family opted for comfort care measures. Patient was brought to the ICU and placed on morphine gtt at 1845. Patient 08/07/22 at 0335. Thank you for allowing us to participate in the care of this patient. The impression and plan of care has been dictated by Rosalina Pedraza, Nurse Practitioner as directed. Dr. Liza MD I have performed a history and physical examination and medical decision making of this patient, discussed the same with the dictator, and agree with the dictators assessment and plan as written, documented as a scribe. Based on total visit time, I have performed more than 50% of this visit. Plan - Discharge Summary New Discharge Prescriptions: No Action Pravastatin Sodium [Pravachol] 80 mg PO HS Potassium Chloride [Klor-Con 20] 20 meq PO SUTHFRSA Felodipine [Felodipine ER] 10 mg PO DAILY ondansetron HCL [Zofran] 8 mg PO Q8HR PRN PRN Reason: Nausea And Vomiting Magnesium Hydroxide [Milk of Magnesia Concentrate] 7,200 mg PO Q48H PRN PRN Reason: Constipation Ipratropium-Albuterol Nebulize [Duoneb 0.5 mg-3 mg/3 ml Soln] 3 ml INHALATION RT-Q6H PRN PRN Reason: Shortness Of Breath Diphenoxylate HCl/Atropine [Lomotil 2.5-0.025 mg Tablet] 1 tab PO QID PRN PRN Reason: Loose Stool bisacodyL [Dulcolax] 10 mg RECTAL DAILY PRN PRN Reason: Constipation Acetaminophen [Tylenol] 650 mg PO Q8H PRN PRN Reason: Fever And/ Or Pain Naproxen [Naprosyn] 500 mg PO BID@0800,1700 Metoclopramide HCl [Reglan] 5 mg PO BID@0800,1700 Metoprolol Succinate (ER) [Toprol Xl] 25 mg PO DAILY Furosemide [Lasix] 20 mg PO DAILY Famotidine [Pepcid] 40 mg PO DAILY Potassium Chloride [Klor-Con M20] 40 meq PO MOTUWE Prochlorperazine [Compazine] 10 mg PO TID PRN PRN Reason: Nausea And Vomiting HYDROcodone/APAP 5-325MG [[place] 5-325] 1 tab PO Q6H PRN PRN Reason: Pain Mag Hydrox/Al Hydrox/Simeth [Maalox] 30 ml PO Q6H PRN PRN Reason: Gi Upset Na Phos,M-B/Na Phos,Di-Ba [Fleet Adult] 133 ml RECTAL DAILY PRN PRN Reason: Constipation Loperamide HCl [Imodium A-D] 2 mg PO Q6H Cholestyramine (with Sugar) [Cholestyramine Packet] 4 gm PO Q4H SILVER sulfADIAZINE Cream [Silvadene 1% Cream] 1 applic TOPICAL BID Pantoprazole Sodium [Protonix] 40 mg PO BID@0800,1700 Tolterodine Tartrate [Tolterodine Tartrate ER] 4 mg PO DAILY Docusate Sodium [Dok] 100 mg PO BID@0800,1700 Spironolactone [Aldactone] 25 mg PO DAILY Discharge Medication List Felodipine [Felodipine ER] 10 mg PO DAILY 03/03/14 [History] Potassium Chloride [Klor-Con 20] 20 meq PO SUTHFRSA 03/03/14 [History] Pravastatin Sodium [Pravachol] 80 mg PO HS 03/03/14 [History] Potassium Chloride [Klor-Con M20] 40 meq PO MOTUWE 06/14/22 [History] Acetaminophen [Tylenol] 650 mg PO Q8H PRN 08/05/22 [History] Cholestyramine (with Sugar) [Cholestyramine Packet] 4 gm PO Q4H 08/05/22 [History] Diphenoxylate HCl/Atropine [Lomotil 2.5-0.025 mg Tablet] 1 tab PO QID PRN 08/05/22 [History] Docusate Sodium [Dok] 100 mg PO BID@0800,1700 08/05/22 [History] Famotidine [Pepcid] 40 mg PO DAILY 08/05/22 [History] Furosemide [Lasix] 20 mg PO DAILY 08/05/22 [History] HYDROcodone/APAP 5-325MG [[place] 5-325] 1 tab PO Q6H PRN 08/05/22 [History] Ipratropium-Albuterol Nebulize [Duoneb 0.5 mg-3 mg/3 ml Soln] 3 ml INHALATION RT-Q6H PRN 08/05/22 [History] Loperamide HCl [Imodium A-D] 2 mg PO Q6H 08/05/22 [History] Mag Hydrox/Al Hydrox/Simeth [Maalox] 30 ml PO Q6H PRN 08/05/22 [History] Magnesium Hydroxide [Milk of Magnesia Concentrate] 7,200 mg PO Q48H PRN 08/05/22 [History] Metoclopramide HCl [Reglan] 5 mg PO BID@0800,1700 08/05/22 [History] Metoprolol Succinate (ER) [Toprol Xl] 25 mg PO DAILY 08/05/22 [History] Na Phos,M-B/Na Phos,Di-Ba [Fleet Adult] 133 ml RECTAL DAILY PRN 08/05/22 [History] Naproxen [Naprosyn] 500 mg PO BID@0800,1700 08/05/22 [History] Pantoprazole Sodium [Protonix] 40 mg PO BID@0800,1700 08/05/22 [History] Prochlorperazine [Compazine] 10 mg PO TID PRN 08/05/22 [History] SILVER sulfADIAZINE Cream [Silvadene 1% Cream] 1 applic TOPICAL BID 08/05/22 [History] Spironolactone [Aldactone] 25 mg PO DAILY 08/05/22 [History] Tolterodine Tartrate [Tolterodine Tartrate ER] 4 mg PO DAILY 08/05/22 [History] bisacodyL [Dulcolax] 10 mg RECTAL DAILY PRN 08/05/22 [History] ondansetron HCL [Zofran] 8 mg PO Q8HR PRN 08/05/22 [History] Follow up Appointment(s)/Referral(s): Favian Alonzo MD [Primary Care Provider] - 1-2 days Discharge Disposition: - Preliminary Cause of Preliminary Cause of : Peritonitis secondary to metastatic ovarian cancer
--- NOTE | 2022-08-11 13:31 | CDI ---
Documentation Clarification Form Date: 08/11/2022 01:06:26 PM From: Betzaida Khan Phone: Admit Date: 08/05/2022 09:35:00 PM Patient Name: Ashlee Noguera Visit Number: [id number] Discharge Date: 08/07/2022 06:39:00 AM ATTENTION: The Clinical Documentation Specialists (CDI) and [facility] Coding Staff appreciate your assistance in clarifying documentation. Please respond to the clarification below the line at the bottom and electronically sign. The CDI & [facility] Coding staff will review the response and follow-up if needed. Please note: Queries are made part of the Legal Health Record. If you have any questions, please contact the author of this message via ITS. Dr. Jerry De Jesus Malignant neoplasm of unspecified ovary with mets to small intestine is documented per Procedure note and patient is noted to have other complete intestinal obstruction with perforation. Please clarify if there is a relationship between the diagnoses. History/Risk Factors: 66yo F, Perforated viscus, Complete SBO, RT pleural effusion, ascites, ovarian cancer s/p chemo with mets to small intestine, HTN, hypoTN, KAYLA, Anemia, Hyperkalemia, GERD, Hyponatremia, hypovolemic, HLD, DNR Clinical Indicators: Preliminary cause of Peritonitis secondary to metastatic ovarian cancer Treatment: Small Intestine, Resection; I do not think the patient's disease is compatible with limiting explained to the patient's family that I think that the procedure should be stopped and the patient be made comfort care. Please clarify the relationship, if any, which is clinically appropriate for this patient: [ ] Small bowl obstruction with perforation is due to malignant neoplasm of unspecified ovary [ x ] Small bowl obstruction with perforation is due to metastasis to small intestine [ ] Other explanation of clinical findings (please specify) [ ] Unable to determine (no explanation for clinical findings) (Template Last Revised: November 2020) MTDD
--- NOTE | 2022-08-26 13:56 | CDI ---
Documentation Clarification Form Date: 08/26/2022 12:03:05 PM From: Tawny Johnson RN, CCDS Email: [email or web address] Admit Date: 08/05/2022 09:35:00 PM Patient Name: Ashlee Noguera Visit Number: [id number] Discharge Date: 08/07/2022 06:39:00 AM ATTENTION: The Clinical Documentation Specialists (CDI) and [facility] Coding Staff appreciate your assistance in clarifying documentation. Please respond to the clarification below the line at the bottom and electronically sign. The CDI & [facility] Coding staff will review the response and follow-up if needed. Please note: Queries are made part of the Legal Health Record. If you have any questions, please contact the author of this message via ITS. Dr. Jerry De Jesus A sacral ulcer is documented in the H&P. Additional clarification regarding the stage of the pressure ulcer is requested. History/Risk Factors: hypertension, hyperlipidemia and recent diagnosis of ovarian cancer has undergone one chemotherapy treatment. She was recently admitted at [facility] for bowel obstruction with conservative management and resolution and was discharged to rehab. She has been at [facility]. Family at bedside states there was talk at one point about a tumor possibly obstructing the bowels. Clinical Indicators: H&P: "sacral ulcer" 08/06 Nursing Note: "patient has several pressure ulcers ranging from stage 2-3 on her bilateral buttocks and coccyx. Zinc paste applied and patient being turned every 2 hours. Patient has 2 large bruises on her left elbow and left upper arm." Location: Sacral and bilateral buttocks Wound description: Nursing describes as warm, moist, fragile with erythema Treatment: Zinc paste. Turn Q2H Please clarify the stage of pressure ulcer [insert location], if known: [x ] Stage 2 Pressure Ulcer of coccyx and buttocks [ ] Stage 3 Pressure Ulcer of coccyx and buttocks [ ] Other condition, please specify [ ] Unable to determine Clinical Definitions: Stage 1 Pressure Ulcer: intact skin, non-blanching redness of local area Stage 2 Pressure Ulcer: Partial thickness, loss of dermis, pink wound bed Stage 3 Pressure Ulcer: Full thickness tissue loss Stage 4 Pressure Ulcer: Full thickness tissue loss with exposed bone, tendon, or muscle. Unstageable pressure ulcer: Full thickness tissue loss in which the base of the ulcer is covered by slough (yellow, fried, fierro, green or brown) and/or eschar (fried, brown or black) in the wound bed MTDD
--- NOTE | 2022-08-26 14:14 | CDI ---
Documentation Clarification Form Date: 08/26/2022 01:57:35 PM From: Tawny Johnson RN, CCDS Email: [email or web address] Admit Date: 08/05/2022 09:35:00 PM Patient Name: Ashlee Noguera Visit Number: [id number] Discharge Date: 08/07/2022 06:39:00 AM ATTENTION: The Clinical Documentation Specialists (CDI) and [facility] Coding Staff appreciate your assistance in clarifying documentation. Please respond to the clarification below the line at the bottom and electronically sign. The CDI & [facility] Coding staff will review the response and follow-up if needed. Please note: Queries are made part of the Legal Health Record. If you have any questions, please contact the author of this message via ITS. Dr. Jerry De Jesus Your patient had shortness of breath on admission and was ultimately on the mechanical ventilator after surgery. Based on this information and the findings below, is there an additional diagnosis that is clinically appropriate for this patient? History/Risk Factors: hypertension, hyperlipidemia and recent diagnosis of ovarian cancer has undergone one chemotherapy treatment. Patient states in the past she's had to have a paracentesis and thoracentesis to get fluid off of her. Patient came in because she started having difficulty breathing and worsening. Patient believes because she has too much fluid in her lungs and belly. S/P bowel resection for perforated viscus. Admitted to ICU and remained on mechanical ventilation until terminal extubation. Clinical Indicators: Shortness of breath. Vital signs: RR 14 (ventilator) Pulse oximetry: 100% (ventilator). 26-90% post extubation 08/05 CXR: Lungs/Pleura: Blunting of the right costophrenic angle with associated atelectasis 08/05 CTA: Lungs/Pleura: Right lower lobe consolidation likely representing atelectasis from moderate right pleural effusion. 08/06 Consult: Lungs reveal diminished basilar right-sided breast sounds. Treatment: O2 2LNC to mechanical ventilation. Breathing tx: Duonebs Q6H prn Is there an additional diagnosis that is clinically appropriate for this patient? [ x] Acute Hypoxic Respiratory Failure (pO2 <60 mm Hg or SpO2 <91% on room air) [ ] Other Diagnosis, please specify [ ] Unable to determine MTDD
== END 2022-08-07 06:39 | disposition expired | DRG 329 ==
LOC: EC 16:43 → 6NMEDSUR 21:35 → 2SICU 08-06 17:30
PROVIDERS: ADMIT Hospitalist; ATTEND Hospitalist
PROC: 0D9670Z Drainage of Stomach with Drainage Device, Via Natural or Artificial Opening (ICD-10-PCS; 2022-08-06)
PROC: 0DTA0ZZ Resection of Jejunum, Open Approach (ICD-10-PCS; principal; 2022-08-06 10:10)
DX: C78.4 Secondary malignant neoplasm of small intestine (principal); J96.01 Acute respiratory failure with hypoxia; K63.1 Perforation of intestine (nontraumatic); K65.8 Other peritonitis; K56.691 Other complete intestinal obstruction; K63.0 Abscess of intestine; N17.9 Acute kidney failure, unspecified; R18.8 Other ascites; J90 Pleural effusion, not elsewhere classified; E87.1 Hypo-osmolality and hyponatremia; C56.9 Malignant neoplasm of unspecified ovary; J98.11 Atelectasis; K76.0 Fatty (change of) liver, not elsewhere classified; I10 Essential (primary) hypertension; D63.0 Anemia in neoplastic disease; I95.9 Hypotension, unspecified; Z51.5 Encounter for palliative care; Z66 Do not resuscitate; L89.152 Pressure ulcer of sacral region, stage 2; L89.322 Pressure ulcer of left buttock, stage 2; L89.312 Pressure ulcer of right buttock, stage 2; E87.5 Hyperkalemia; E78.5 Hyperlipidemia, unspecified; K66.0 Peritoneal adhesions (postprocedural) (postinfection); K21.9 Gastro-esophageal reflux disease without esophagitis; R79.89 Other specified abnormal findings of blood chemistry; E86.1 Hypovolemia; M79.89 Other specified soft tissue disorders; Z92.21 Personal history of antineoplastic chemotherapy; Z79.899 Other long term (current) drug therapy
CPT/HCPCS: 36415; 71046; 71275; 74176; 80048; 80053; 83605; 83735; 83880; 84132; 84484; 85025; 85379; 85610; 85730; 86850; 86900; 86901; 88307; 93005; 94002; 94640; 94760; 96374; 96375; 96376; 99291